=== PATIENT | female | born 1990 | race Hispanic/Latino ===

== ENCOUNTER 2017-07-11 08:53 | Emergency (ER) | payer OTHER ==
[2017-07-11] MEDS ORDERED: NA CHLORIDE 0.9% 1,000 ML ONE ×2 (10:08→12:31)
[2017-07-11] MEDS ORDERED: METOCLOPRAMIDE 10 MG/2mL INJ ONE (10:08)
[2017-07-11 10:48] LABS: Glucose Level 168 mg/dL (65-120)
[2017-07-11 10:49] LABS: BUN Blood Urea Nitrogen 12 mg/dL (6-20)
[2017-07-11 10:50] LABS: Bicarbonate 19 mEq/L (21-31); Sodium Level 136 mEq/L (135-145)
[2017-07-11 11:11] LABS: Absolute Lymphocytes (CBC) 0.8 K/uL (0.7-4.9); Absolute Monocytes 0.1 K/uL (0.1-1.3); Absolute Neutrophil 11.2 K/uL (1.8-8.0); Basophils % 0.2 % (0-1.3); Lymphocytes % 6.2 % (15.3-44.8); MCH 29.8 pg (27.0-35.0); MCV 88.9 fL (80-100); MPV 6.6 fL (7.6-11.3); Monocytes % 1.1 % (3.3-12.3); RBC Red Blood Cell Count 4.27 M/uL (3.86-4.86)
[2017-07-11] MEDS ORDERED: POTASSIUM CL SA 10 MEQ TAB PO ONE (11:33)
[2017-07-11 12:15] LABS: Blood Morphology Comment NOT SEEN (NOT SEEN); Platelet Estimate ADEQ; Urine White Blood Cell Casts OK
[2017-07-11 13:01] LABS: Urine Bacteria 20-50 /HPF (<20); Urine Culture Reflex Order NOT NEEDED; Urine Mucus 1+ /HPF (NONE SEEN)
--- NOTE | 2017-07-11 13:06 | ER ---
Nurse's Notes [facility] Name: Radha Beckman Age: 27 yrs Sex: Female : 1990 Arrival Date: 07/11/2017 Time: 08:54 Bed 5 Private MD: Diagnosis: Vomiting of , unspecified Presentation: 07/11 09:05 Presenting complaint: Patient states: has been vomiting all night and for past couple iw of weeks, body is tingling and having blurry vision, is currently , LMP is approx 3-1-18. Transition of care: patient was not received from another setting of care. Onset of symptoms was July 11, 2017. Initial Sepsis Screen: Does the patient meet any 2 criteria? No. Patient's initial sepsis screen is negative. Does the patient have a suspected source of infection? No. Patient's initial sepsis screen is negative. Care prior to arrival: Medication(s) given: diclegis and promethazine this morning. 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 - Social history:: Smoking status: Patient/guardian denies using tobacco. Screenin:45 Abuse screen: Denies threats or abuse. Denies injuries from another. Nutritional sg screening: No deficits noted. Tuberculosis screening: No symptoms or risk factors identified. Never had TB. Fall Risk None identified. Assessment: 09:45 General: Appears in no apparent distress. uncomfortable, ill, well groomed, well sg developed, well nourished, Behavior is calm, cooperative, appropriate for age. Pain: Denies pain. Neuro: No deficits noted. Reports headache tingling sensation to the face. Cardiovascular: Heart tones S1 S2 present Capillary refill is brisk in bilateral fingers Patient's skin is warm and dry. Chest pain is denied. Respiratory: Airway is patent Respiratory effort is even, unlabored, Respiratory pattern is regular, symmetrical. GI: Abdomen is flat, non-distended, Bowel sounds present X 4 quads. Reports cramping, nausea, vomiting. : No signs and/or symptoms were reported regarding the genitourinary system. EENT: No signs and/or symptoms were reported regarding the EENT system. Derm: Skin is intact, is healthy with good turgor, Skin is dry, Skin is normal, Skin temperature is warm. Musculoskeletal: No signs and/or symptoms reported regarding the musculoskeletal system. 10:37 Reassessment: pt dry heaving and moaning aloud at this time, requesting water. pt sg informed NPO until testing is complete and nausea vomiting has subsided, pt reports understanding, pt verbalized " Ill just drink from the faucet here in the room." will continue to monitor. 12:27 Reassessment: Patient appears in no apparent distress at this time. Patient and/or sg family updated on plan of care and expected duration. Pain level reassessed. Patient is alert, oriented x 3, equal unlabored respirations, skin warm/dry/pink. pt tolerating PO juice and water and ice chips at this time, pt encouraged not to take too much fluids in at once, pt stated understanding, will continue to monitor Patient states feeling better. Vital Signs: 09:07 BP 116 / 79; Pulse 82; Resp 22 S; Temp 98.8; Pulse Ox 100% on R/A; Weight 51.26 kg; iw Height 5 ft. 1 in. (154.94 cm); Pain 8/10; 09:45 BP 116 / 79 Supine; Pulse 75; sg 10:00 BP 115 / 84 Sitting; Pulse 80 MON; sg 10:04 BP 131 / 92 Standing; Pulse 95; sg 09:07 Body Mass Index 21.35 (51.26 kg, 154.94 cm) iw ED Course: 08:54 Patient arrived in ED. as 09:06 Triage completed. iw 09:07 Arm band placed on. iw 09:40 Initial lab(s) drawn, by ED staff, sent to lab. Inserted saline lock: 20 gauge in right sg antecubital area, using aseptic technique. Blood collected. IV inserted by [employer]. 10:00 Salome Moser FNP-C is PHCP. kb 10:00 Dylan Moran MD is Attending Physician. kb 10:04 Li, Travon, RN is Primary Nurse. sg Administered Medications: 10:26 Drug: NS 0.9% 1000 ml Route: IV; Rate: 1000 ml; Site: right antecubital; sv 10:26 Drug: Reglan 10 mg Route: IVP; Infused Over: 5 mins; Site: right antecubital; sv 11:30 Follow up: Response: No adverse reaction sg 12:25 Drug: Potassium Chloride 40 mEq Route: PO; sg 13:10 Follow up: Response: No adverse reaction sg 12:35 Drug: NS 0.9% 1000 ml Route: IV; Rate: 1000 ml; Site: right antecubital; sg Outcome: 13:05 Discharge ordered by MD. kb 13:22 Patient left the ED. sg Signatures: Salome Moser, DESTIN CHAIDEZ-Lakshmi Rodriguez RN DALIA Travon Li, RN RN sg Kami Juarez Irene RN RN iw Corrections: (The following items were deleted from the chart) 09:08 09:05 Presenting complaint: Patient states: has been vomiting all night, body is iw tingling and having blurry vision, is currently , LMP is approx 3-1-18 iw
--- NOTE | 2017-07-11 13:06 | EDPHYS ---
Physician Documentation [facility] Name: Radha Beckman Age: 27 yrs Sex: Female : 1990 Arrival Date: 07/11/2017 Time: 08:54 Bed 5 Private MD: ED Physician Dylan Moran HPI: 07/11 10:06 This 27 yrs old Female presents to ER via Ambulatory with complaints of kb Vomiting - Preg Unk Weeks. 10:06 The patient presents to the emergency department with nausea and vomiting, that started kb 19 day(s) ago. course: care: at a clinic, Leakage of Fluid: none appreciated, Ultrasound: the patient has not had an ultrasound, Risk/complications: no obvious risks or complications are appreciated. Previous pregnancies: in previous pregnancies patient has had. Associated signs and symptoms: Pertinent positives: nausea, vomiting, Pertinent negatives: abdominal pain, chest pain, diarrhea, dysuria, fever, frequency, ruptured membranes, seizure, shortness of breath, vaginal bleeding, vaginal discharge. The patient has not experienced similar symptoms in the past. The patient has not recently seen a physician. 10:08 Pt states she has been vomiting since 06/22/17. Had a positive test last week kb at [facility] clinic. States she was seen 2 days ago and given a prescription for phenergan, but it hasn't been working. 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 - Social history:: Smoking status: Patient/guardian denies using tobacco. ROS: 10:06 Constitutional: Negative for fever, chills, and weight loss, Cardiovascular: Negative kb for chest pain, palpitations, and edema, Respiratory: Negative for shortness of breath, cough, wheezing, and pleuritic chest pain, Back: Negative for injury and pain, : Negative for injury, bleeding, discharge, and swelling, MS/Extremity: Negative for injury and deformity, Skin: Negative for injury, rash, and discoloration, Neuro: Negative for headache, weakness, numbness, tingling, and seizure. 10:06 Abdomen/GI: Positive for nausea and vomiting, Negative for abdominal pain, diarrhea, constipation, abdominal cramps, abdominal distension, anorexia. Exam: 10:06 Constitutional: This is a well developed, well nourished patient who is awake, alert, kb and in no acute distress. Head/Face: Normocephalic, atraumatic. ENT: Nares patent. No nasal discharge, no septal abnormalities noted. Tympanic membranes are normal and external auditory canals are clear. Oropharynx with no redness, swelling, or masses, exudates, or evidence of obstruction, uvula midline. Mucous membranes moist. Neck: Trachea midline, no thyromegaly or masses palpated, and no cervical lymphadenopathy. Supple, full range of motion without nuchal rigidity, or vertebral point tenderness. No Meningismus. Chest/axilla: Normal chest wall appearance and motion. Nontender with no deformity. No lesions are appreciated. Cardiovascular: Regular rate and rhythm with a normal S1 and S2. No gallops, murmurs, or rubs. Normal PMI, no JVD. No pulse deficits. Respiratory: Lungs have equal breath sounds bilaterally, clear to auscultation and percussion. No rales, rhonchi or wheezes noted. No increased work of breathing, no retractions or nasal flaring. Abdomen/GI: Soft, non-tender, with normal bowel sounds. No distension or tympany. No guarding or rebound. No evidence of tenderness throughout. Skin: Warm, dry with normal turgor. Normal color with no rashes, no lesions, and no evidence of cellulitis. MS/ Extremity: Pulses equal, no cyanosis. Neurovascular intact. Full, normal range of motion. Neuro: Awake and alert, GCS 15, oriented to person, place, time, and situation. Cranial nerves II-XII grossly intact. Motor strength 5/5 in all extremities. Sensory grossly intact. Cerebellar exam normal. Normal gait. Vital Signs: 09:07 BP 116 / 79; Pulse 82; Resp 22 S; Temp 98.8; Pulse Ox 100% on R/A; Weight 51.26 kg; iw Height 5 ft. 1 in. (154.94 cm); Pain 8/10; 09:45 BP 116 / 79 Supine; Pulse 75; sg 10:00 BP 115 / 84 Sitting; Pulse 80 MON; sg 10:04 BP 131 / 92 Standing; Pulse 95; sg 09:07 Body Mass Index 21.35 (51.26 kg, 154.94 cm) iw MDM: 10:00 Patient medically screened. kb 10:06 Data reviewed: vital signs, nurses notes. Data interpreted: Pulse oximetry: on room air kb is 100 %. Interpretation: normal. 11:16 ED course: Pt reports she is doing better. Resting on stretcher. Awaiting lab results. kb 12:40 Counseling: I had a detailed discussion with the patient and/or guardian regarding: the kb historical points, exam findings, and any diagnostic results supporting the discharge/admit diagnosis, lab results, the need for outpatient follow up, an OB/Gyne specialist, to return to the emergency department if symptoms worsen or persist or if there are any questions or concerns that arise at home. 12:43 ED course: Pt denies abd pain and vaginal bleeding. Pt is tolerating PO intake at this kb time. Educated to follow up with OB. Verbal understanding received. . 07/11 10:06 Order name: Quantitative Hcg; Complete Time: 11:31 kb 07/11 10:06 Order name: Abo/rh Typing; Complete Time: 11:11 kb 07/11 10:06 Order name: Basic Metabolic Panel; Complete Time: 11:31 kb 07/11 10:06 Order name: CBC with Diff; Complete Time: 12:17 kb 07/11 11:13 Order name: CBC Smear Scan; Complete Time: 12:17 EDMS 07/11 12:26 Order name: Urine Microscopic Only; Complete Time: 13:02 kb 07/11 10:02 Order name: Orthostatics; Complete Time: 10:07 kb 07/11 12:26 Order name: Urine Culture kb 07/11 12:32 Order name: Urine Dipstick--Ancillary (enter results) ag 07/11 12:32 Order name: Urine --Ancillary (enter results) ag 07/11 10:06 Order name: Urine Test (obtain specimen); Complete Time: 12:26 kb 07/11 10:06 Order name: IV Saline Lock; Complete Time: 10:19 kb 07/11 10:06 Order name: Labs collected and sent; Complete Time: 10:19 kb 07/11 10:06 Order name: NPO; Complete Time: 10:07 kb 07/11 10:06 Order name: Urine Dipstick-Ancillary (obtain specimen); Complete Time: 12:26 kb 07/11 12:12 Order name: PO challenge; Complete Time: 12:26 kb Administered Medications: 10:26 Drug: NS 0.9% 1000 ml Route: IV; Rate: 1000 ml; Site: right antecubital; sv 10:26 Drug: Reglan 10 mg Route: IVP; Infused Over: 5 mins; Site: right antecubital; sv 11:30 Follow up: Response: No adverse reaction sg 12:25 Drug: Potassium Chloride 40 mEq Route: PO; sg 13:10 Follow up: Response: No adverse reaction sg 12:35 Drug: NS 0.9% 1000 ml Route: IV; Rate: 1000 ml; Site: right antecubital; sg Disposition: 07/11/17 13:05 Discharged to Home. Impression: Vomiting of , unspecified. - Condition is Stable. - Discharge Instructions: Morning Sickness, [id number]. - Prescriptions for Phenergan 25 mg Rectal Suppository - insert 1 suppository by RECTAL route every 6 hours As needed; 12 suppository. - Medication Reconciliation Form, Thank You Letter, Antibiotic Education, Prescription Opioid Use, Work release form, Family Work Release form. - Follow up: Emergency Department; When: As needed; Reason: Worsening of condition. Follow up: Private Physician; When: 2 - 3 days; Reason: Recheck today's complaints, Continuance of care, Re-evaluation by your physician. - Notes: Continue phenergan and diclegis as directed by OB Addendum: 07/13/2017 10:42 Co-signature as Attending Physician, Dylan Moran MD I agree with the assessment and w a plan of care. Signatures: Dispatcher [employer] EDSalome Talley, DESTIN HANDLEYP-Lakshmi Rodriguez RN RN sv Gay, Steven, RN RN sg Williams, Irene, RN RN iw Appiah, William, MD MD wa Corrections: (The following items were deleted from the chart) 07/11 13:22 13:05 07/11/2017 13:05 Discharged to Home. Impression: Vomiting of , sg unspecified. Condition is Stable. Forms are Medication Reconciliation Form, Thank You Letter, Antibiotic Education, Prescription Opioid Use. Follow up: Emergency Department; When: As needed; Reason: Worsening of condition. Follow up: Private Physician; When: 2 - 3 days; Reason: Recheck today's complaints, Continuance of care, Re-evaluation by your physician. kb
[2017-07-11 13:25] VITALS: TEMP 98.8; O2SAT 100
[2017-07-11 13:28] VITALS: BP 131/92
[2017-07-11 13:56] LABS: Urine Blood TRACE (NEG); Urine Glucose TRACE (NEG); Urine Protein 2+ (NEG); Urine Specific Gravity 1.025 (1.005-1.030); Urine pH 6.5 (5.0-7.0)
== END 2017-07-11 13:22 | disposition home or self-care (01) ==
LOC: ER 08:53
DX: O26.891 Other specified pregnancy related conditions, first trimester (principal); R11.11 Vomiting without nausea; Z3A.00 Weeks of gestation of pregnancy not specified
CPT/HCPCS: 36415; 80048; 81003; 81015; 81025; 84702; 85025; 86900; 86901; 87086; 87088; 96374; 99283; J2765; J7030

== ENCOUNTER 2017-07-14 14:14 | Observation (INO) | payer OTHER ==
[2017-07-14] MEDS ORDERED: NA CHLORIDE 0.9% 1,000 ML ONE (15:20)
[2017-07-14] MEDS ORDERED: PROMETHAZINE 25 MG/ML VIAL ONE (15:20)
[2017-07-14 15:44] LABS: Absolute Lymphocytes (CBC) 2.1 K/uL (0.7-4.9); Absolute Monocytes 0.7 K/uL (0.1-1.3); Absolute Neutrophil 11.4 K/uL (1.8-8.0); Basophils % 0.2 % (0-1.3); Eosinophils % 0.2 % (0-4.4); Hematocrit 42.9 % (36.0-45.0); Lymphocytes % 14.6 % (15.3-44.8); MCH 30.3 pg (27.0-35.0); MCV 88.4 fL (80-100); MPV 6.3 fL (7.6-11.3); RBC Red Blood Cell Count 4.86 M/uL (3.86-4.86)
[2017-07-14 15:52] LABS: Glucose Level 109 mg/dL (65-120); Lipase 21 U/L (22-51)
[2017-07-14 15:56] LABS: Bicarbonate 27 mEq/L (21-31); Sodium Level 133 mEq/L (135-145)
[2017-07-14 15:58] LABS: ALT/SGPT 60 IU/L (10-60); AST/SGOT 43 IU/L (10-42); Albumin 5.1 g/dL (3.2-5.5); Alkaline Phosphatase 41 IU/L (42-121); BUN Blood Urea Nitrogen 12 mg/dL (6-20); Bilirubin Direct 0.2 mg/dL (0-0.2); Potassium 2.3 mEq/L (3.6-5.0); Protein, Total 8.9 g/dL (6.0-8.3)
[2017-07-14] MEDS ORDERED: NS KCL 20MEQ 1,000 ML IV ONE (16:09)
[2017-07-14] MEDS ORDERED: POTASSIUM CL SA 10 MEQ TAB PO ONE (16:09)
[2017-07-14] MEDS ORDERED: ACETAMINOPHEN 500 MG TAB ONE (16:18)
--- NOTE | 2017-07-14 18:03 | EDPHYS ---
Physician Documentation [facility] Name: Radha Beckman Age: 27 yrs Sex: Female : 1990 Arrival Date: 07/14/2017 Time: 14:24 Bed 20 Private MD: ED Physician Vitor Crespo HPI: 07/14 15:43 This 27 yrs old Female presents to ER via Ambulatory with complaints of jr8 Nausea/Vomiting. 15:43 The patient presents to the emergency department with nausea, vomiting. Onset: The jr8 symptoms/episode began/occurred gradually, 1 month(s) ago. Possible causes: . The symptoms are aggravated by food , The symptoms are alleviated by prescription meds. Associated signs and symptoms: Pertinent positives: weakness and fatigue. Severity of symptoms: At their worst the symptoms were moderate in the emergency department the symptoms are unchanged. The patient has experienced similar episodes in the past, a few times. The patient has not recently seen a physician. Patient stated that she is and has had continuous n/v for approximately one month. Has had this three other times with her other children. History of hyperemesis gravidarum. 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 - Social history:: Smoking status: Patient/guardian denies using tobacco. ROS: 15:43 Eyes: Negative for injury, pain, redness, and discharge, ENT: Negative for injury, jr8 pain, and discharge, Neck: Negative for injury, pain, and swelling, Cardiovascular: Negative for chest pain, palpitations, and edema, Respiratory: Negative for shortness of breath, cough, wheezing, and pleuritic chest pain, Back: Negative for injury and pain, MS/Extremity: Negative for injury and deformity, Skin: Negative for injury, rash, and discoloration, Neuro: Negative for headache, weakness, numbness, tingling, and seizure. 15:43 Abdomen/GI: Positive for nausea and vomiting, Negative for abdominal pain, abdominal distension, anorexia, dysphagia, hematemesis, black/tarry stool, rectal pain, rectal bleeding, bowel incontinence, flatulence. Exam: 15:43 Eyes: Pupils equal round and reactive to light, extra-ocular motions intact. Lids and jr8 lashes normal. Conjunctiva and sclera are non-icteric and not injected. Cornea within normal limits. Periorbital areas with no swelling, redness, or edema. ENT: Nares patent. No nasal discharge, no septal abnormalities noted. Tympanic membranes are normal and external auditory canals are clear. Oropharynx with no redness, swelling, or masses, exudates, or evidence of obstruction, uvula midline. Mucous membranes moist. Neck: Trachea midline, no thyromegaly or masses palpated, and no cervical lymphadenopathy. Supple, full range of motion without nuchal rigidity, or vertebral point tenderness. No Meningismus. Cardiovascular: Regular rate and rhythm with a normal S1 and S2. No gallops, murmurs, or rubs. Normal PMI, no JVD. No pulse deficits. Respiratory: Lungs have equal breath sounds bilaterally, clear to auscultation and percussion. No rales, rhonchi or wheezes noted. No increased work of breathing, no retractions or nasal flaring. Abdomen/GI: Soft, non-tender, with normal bowel sounds. No distension or tympany. No guarding or rebound. No evidence of tenderness throughout. Back: No spinal tenderness. No costovertebral tenderness. Full range of motion. Skin: Warm, dry with normal turgor. Normal color with no rashes, no lesions, and no evidence of cellulitis. MS/ Extremity: Pulses equal, no cyanosis. Neurovascular intact. Full, normal range of motion. Neuro: Awake and alert, GCS 15, oriented to person, place, time, and situation. Cranial nerves II-XII grossly intact. Motor strength 5/5 in all extremities. Sensory grossly intact. Cerebellar exam normal. Normal gait. Vital Signs: 14:27 BP 124 / 78; Pulse 90; Resp 18; Temp 98.5(TE); Pulse Ox 100% on R/A; Weight 51.26 kg; hj Height 5 ft. 0 in. (152.40 cm); Pain 7/10; 16:19 BP 117 / 85; Pulse 87; Resp 19; Pulse Ox 100% on R/A; la1 17:24 BP 114 / 74; Pulse 81; Resp 16; Pulse Ox 100% on R/A; la1 18:25 BP 110 / 71; Pulse 86; Resp 16; Pulse Ox 100% on R/A; ae1 19:16 BP 125 / 78; Pulse 84; Resp 16; Temp 98.5(O); Pulse Ox 98% on R/A; lp1 14:27 Body Mass Index 22.07 (51.26 kg, 152.40 cm) hj MDM: 15:05 Patient medically screened. jr8 17:07 ED course: Message left for Dr. Monge at 17:00. Left message to call back about patient jr8 . 18:01 Data reviewed: vital signs, nurses notes, lab test result(s), and as a result, I will jr8 admit patient. Data interpreted: Pulse oximetry: on room air is 100 %. Interpretation: normal. Counseling: I had a detailed discussion with the patient and/or guardian regarding: the historical points, exam findings, and any diagnostic results supporting the discharge/admit diagnosis, lab results, the need for further work-up and treatment in the hospital. ED course: Dr. Monge was reached. Ok to admit for obs for hypokalemia and dehydration . 07/14 15:14 Order name: Basic Metabolic Panel; Complete Time: 16:00 8 07/14 15:14 Order name: CBC with Diff; Complete Time: 15:49 07/14 15:14 Order name: Hepatic Function; Complete Time: 16:00 8 07/14 15:14 Order name: Lipase; Complete Time: 16:00 8 07/14 18:12 Order name: Urine Dipstick--Ancillary (enter results); Complete Time: 19:29 bd 07/14 18:12 Order name: Urine --Ancillary (enter results); Complete Time: 19:29 bd 07/14 15:14 Order name: Urine Test (obtain specimen); Complete Time: 18:09 8 07/14 15:14 Order name: IV Saline Lock; Complete Time: 15:18 8 07/14 15:14 Order name: Labs collected and sent; Complete Time: 15:18 8 07/14 15:14 Order name: Urine Dipstick-Ancillary (obtain specimen); Complete Time: 18:09 jr8 Administered Medications: 15:26 Drug: NS 0.9% (20 ml/kg) 20 ml/kg Route: IV; Rate: 1 bolus; Site: right antecubital; la1 15:26 Drug: Phenergan 12.5 mg Route: IVP; Site: right antecubital; la1 17:49 Follow up: Response: No adverse reaction la1 16:19 Drug: NS 0.9% with KCl 20 mEq/L 1000 ml Route: IV; Rate: calculated rate; Site: right la1 antecubital; 19:18 Follow up: IV Status: Completed infusion lp1 16:19 Drug: Potassium Chloride 40 mEq Route: PO; la1 17:49 Follow up: Response: No adverse reaction la1 16:19 Drug: Tylenol 1000 mg Route: PO; la1 17:49 Follow up: Response: No adverse reaction la1 18:43 Drug: Pepcid 20 mg Route: IVP; Site: right antecubital; ae1 19:19 Follow up: Response: No adverse reaction lp1 Disposition: 07/15 19:50 Co-signature as Attending Physician, Vitor Crespo MD. Disposition: 07/14/17 18:03 Hospitalization ordered by Lanre Monge for Observation. Preliminary diagnosis are Hypokalemia, Dehydration, Vomiting of , unspecified. - [facility]. - Status is Observation. fc - Condition is Stable. - Problem is new. - Symptoms have improved. UTI on Admission? No Signatures: Dispatcher [employer] EDMS Sowmya Palmer Felicia, RN RN Choco Cannon, SANGITA PA jr8 Александр Han RN RN la1 Diego Diaz RN RN Melvin Colby RN RN ae1 Vitor Crespo MD MD Franny Stewart RN lp1 Corrections: (The following items were deleted from the chart) 07/14 18:31 18:03 Hospitalization Ordered by Lanre Monge MD for Observation. Preliminary bd diagnosis is Hypokalemia; Dehydration; Vomiting of , unspecified. Bed requested for [facility]. Status is Observation. Condition is Stable. Problem is new. Symptoms have improved. UTI on Admission? No. jr8 20:02 18:31 07/14/2017 18:03 Hospitalization Ordered by Lanre Monge MD for Observation. fc Preliminary diagnosis is Hypokalemia; Dehydration; Vomiting of , unspecified. Bed requested for [facility]. Status is Observation. Condition is Stable. Problem is new. Symptoms have improved. UTI on Admission? No. bd
--- NOTE | 2017-07-14 18:03 | ER ---
Nurse's Notes [facility] Name: Radha Beckman Age: 27 yrs Sex: Female : 1990 Arrival Date: 07/14/2017 Time: 14:24 Bed 20 Private MD: Diagnosis: Hypokalemia;Dehydration;Vomiting of , unspecified Presentation: 07/14 14:25 Presenting complaint: Patient states: LMP- 05/17/17; magdalena been vomiting since June; hj couldn't keep anything down and now i feel so weak; reports fever and chills;. Transition of care: patient was not received from another setting of care. Onset of symptoms was July 14, 2017. Initial Sepsis Screen: Does the patient meet any 2 criteria? No. Patient's initial sepsis screen is negative. Does the patient have a suspected source of infection? No. Patient's initial sepsis screen is negative. Care prior to arrival: None. 14:25 Method Of Arrival: Ambulatory 14:25 Acuity: SHARIF 3 hj Triage Assessment: 14:27 General: Appears in no apparent distress. uncomfortable, Behavior is calm, cooperative, hj appropriate for age. Pain: Denies pain. Complains of pain in abdomen. GI: Reports nausea, vomiting. 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 - Social history:: Smoking status: Patient/guardian denies using tobacco. Screenin:11 Abuse screen: Denies threats or abuse. Nutritional screening: No deficits noted. la1 Tuberculosis screening: No symptoms or risk factors identified. Fall Risk None identified. Assessment: 14:27 GI: Abdomen is Pt is actively vomiting. hj 15:10 General: Appears uncomfortable, Behavior is calm, cooperative. Pain: Denies pain. la1 Neuro: Level of Consciousness is awake, alert, obeys commands, Oriented to person, place, time, situation. Cardiovascular: Capillary refill < 3 seconds Patient's skin is warm and dry. Respiratory: Airway is patent Respiratory effort is even, unlabored. GI: Pt is actively vomiting. : No signs and/or symptoms were reported regarding the genitourinary system. 16:20 Reassessment: Patient appears in no apparent distress at this time. No changes from la1 previously documented assessment. 17:23 Reassessment: Patient appears in no apparent distress at this time. No changes from la1 previously documented assessment. Patient is alert, oriented x 3, equal unlabored respirations, skin warm/dry/pink. 18:26 Reassessment: Patient appears in no apparent distress at this time. No changes from ae1 previously documented assessment. Patient is alert, oriented x 3, equal unlabored respirations, skin warm/dry/pink. 18:43 Reassessment: patient is c/o of feeling "gassy" patient is observed belching ae1 repeatedly, and is asking for medication to help. Provider notified, new orders received. 19:17 Reassessment: Patient is alert, oriented x 3, equal unlabored respirations, skin lp1 warm/dry/pink. Patient states "I feel like the nausea is coming back". Vital Signs: 14:27 BP 124 / 78; Pulse 90; Resp 18; Temp 98.5(TE); Pulse Ox 100% on R/A; Weight 51.26 kg; hj Height 5 ft. 0 in. (152.40 cm); Pain 7/10; 16:19 BP 117 / 85; Pulse 87; Resp 19; Pulse Ox 100% on R/A; la1 17:24 BP 114 / 74; Pulse 81; Resp 16; Pulse Ox 100% on R/A; la1 18:25 BP 110 / 71; Pulse 86; Resp 16; Pulse Ox 100% on R/A; ae1 19:16 BP 125 / 78; Pulse 84; Resp 16; Temp 98.5(O); Pulse Ox 98% on R/A; lp1 14:27 Body Mass Index 22.07 (51.26 kg, 152.40 cm) ED Course: 14:24 Patient arrived in ED. 14:26 Triage completed. 14:27 Arm band placed on left wrist. 15:05 [facility] Cannon [facility] 15:05 Vitor Crespo MD is Attending Physician. jr8 15:10 Attema, Александр, RN is Primary Nurse. la1 15:11 Call light in reach. la1 15:18 Inserted saline lock: 22 gauge in right antecubital area, using aseptic technique. la1 Blood collected. 18:02 Lanre Monge MD is Hospitalizing Provider. jr8 19:17 No provider procedures requiring assistance completed. Patient admitted, IV remains in lp1 place. Administered Medications: 15:26 Drug: NS 0.9% (20 ml/kg) 20 ml/kg Route: IV; Rate: 1 bolus; Site: right antecubital; la1 15:26 Drug: Phenergan 12.5 mg Route: IVP; Site: right antecubital; la1 17:49 Follow up: Response: No adverse reaction la1 16:19 Drug: NS 0.9% with KCl 20 mEq/L 1000 ml Route: IV; Rate: calculated rate; Site: right la1 antecubital; 19:18 Follow up: IV Status: Completed infusion lp1 16:19 Drug: Potassium Chloride 40 mEq Route: PO; la1 17:49 Follow up: Response: No adverse reaction la1 16:19 Drug: Tylenol 1000 mg Route: PO; la1 17:49 Follow up: Response: No adverse reaction la1 18:43 Drug: Pepcid 20 mg Route: IVP; Site: right antecubital; ae1 19:19 Follow up: Response: No adverse reaction lp1 Outcome: 18:03 Decision to Hospitalize by Provider. jr8 19:17 Condition: stable lp1 19:17 Instructed on the need for admit. 19:57 Admitted to L \\T\\ D, accompanied by nurse, via wheelchair, room 277, with chart, Report lp1 called to DALIA Price 20:02 Patient left the ED. fc Signatures: Kanwal Anaya RN DALIA Franny Stewart RN RN lp1 Choco Cannon PA PA jr8 Александр Han RN RN la1 Diego Diaz RN RN Melvin Colby RN RN ae1 Corrections: (The following items were deleted from the chart) 14:29 14:27 Pulse 90bpm; Resp 18bpm; Pulse Ox 100% RA; Temp 98.5F Temporal; 51.26 kg; Height hj 5 ft. 0 in.; BMI: 22.0; Pain 7/10; hj
[2017-07-14] MEDS ORDERED: FAMOTIDINE 20 MG/2 ML VIAL IV ONE (18:42)
[2017-07-14 18:45] LABS: Urine Blood TRACE (NEG); Urine Glucose NEGATIVE (NEG); Urine Protein 1+ (NEG); Urine Specific Gravity 1.015 (1.005-1.030); Urine pH 8.5 (5.0-7.0)
[2017-07-14] MEDS ORDERED: Ringers Lactate 1,000 ML IV SCH (20:23)
[2017-07-14] MEDS ORDERED: KCL 20 MEQ/100 mL IVPB 20 MEQ/100 ML BAG IV SCH (20:23)
[2017-07-14] MEDS ORDERED: ONDANSETRON 4 MG/2 ML VIAL IV PRN (20:23)
[2017-07-14] MEDS ORDERED: D5.45NS W/KCL 20MEQ 1,000 ML IV SCH (20:23)
[2017-07-14 20:43] VITALS: O2SAT 98
[2017-07-14] MEDS: PROMETHAZINE 25 MG/ML VIAL IV PRN (20:54)
[2017-07-14] MEDS ORDERED: KCL 20 MEQ/100 mL IVPB 20 MEQ/100 ML BAG IV ONE (21:22)
[2017-07-14] MEDS ORDERED: ZOLPIDEM TARTRATE 5 MG TABLET PO PRN (21:23)
[2017-07-14] MEDS ORDERED: D5.45NS W/KCL 20MEQ 1,000 ML IV ONE (21:26)
[2017-07-14] MEDS: ACETAMINOPHEN 500 MG TAB PO PRN (21:41)
[2017-07-14 22:14] VITALS: BMI 21.9
[2017-07-15 04:41] LABS: Absolute Lymphocytes (CBC) 2.5 K/uL (0.7-4.9); Absolute Monocytes 0.6 K/uL (0.1-1.3); Absolute Neutrophil 5.1 K/uL (1.8-8.0); Basophils % 0.3 % (0-1.3); Eosinophils % 0.8 % (0-4.4); Hematocrit 32.8 % (36.0-45.0); MCH 30.4 pg (27.0-35.0); MCV 89.7 fL (80-100); Monocytes % 7.6 % (3.3-12.3); RBC Red Blood Cell Count 3.65 M/uL (3.86-4.86)
[2017-07-15 04:57] LABS: BUN Blood Urea Nitrogen 6 mg/dL (6-20); Bicarbonate 23 mEq/L (21-31); Glucose Level 93 mg/dL (65-120); Potassium 3.5 mEq/L (3.6-5.0); Sodium Level 135 mEq/L (135-145)
[2017-07-15 07:40] VITALS: BP 98/57; TEMP 98.9
[2017-07-15] MEDS: PROMETHAZINE 25 MG/ML VIAL IV PRN (09:05)
[2017-07-15] MEDS: ACETAMINOPHEN 500 MG TAB PO PRN (09:35)
--- NOTE | 2017-07-15 12:00 | PREOPHP ---
Date of Admission: 07/14/2017 History Of Present Illness: This is a 4, para 3, who is at 8 weeks and 5 days' gestation wit h hyperemesis gravidarum. Seen in the emergency room. Noted to have hypokalemia, level of 2.3, was given oral and IV potassium, hydrated. It was thought best to keep her for overnight observation. D uring the night, she has only had antinausea medicine one time 12.5 mg, which was given IV according to ER orders. She has been sleeping soundly. Her on potassium level this morning is 3.5. She seems to be improving significantly. Family History: Noncontributory. Allergies: SHE HAS NO ALLERGIES. Physical Examination: Basically normal and there are no significant problems this morning, so we will allow her to eat a li ght breakfast. Continue the IVs until we know she is stable and then probably send her home later th is morning. Diagnosis: Hyperemesis gravidarum, first trimester, now improving. CORBY/GRISELDA Voice ID: [id number]
== END 2017-07-15 10:25 | disposition home or self-care (01) ==
LOC: ER 14:14 → ERHOLD 18:04 → 2ND-WC 19:36
PROVIDERS: ADMIT Specialist; ATTEND Specialist
DX: O21.1 Hyperemesis gravidarum with metabolic disturbance (principal); Z3A.08 8 weeks gestation of pregnancy
CPT/HCPCS: 36415; 80048; 80076; 81003; 81025; 83690; 85025; 96361; 96374; 96375; 99285; G0378; J2550; J7030

== ENCOUNTER 2018-02-04 04:13 | Inpatient (IN) | payer OTHER ==
[2018-02-04] MEDS ORDERED: MEPERIDINE HCL 25 MG/0.5 ML IV PRN (04:22)
[2018-02-04] MEDS ORDERED: CARBOPROST TROME 250 MCG/ML IM PRN (04:22)
[2018-02-04] MEDS ORDERED: Ringers Lactate 1,000 ML IV PRN (04:22)
[2018-02-04] MEDS ORDERED: MIDAZOLAM HCL 2 MG/2 ML INJ IV PRN (04:22)
[2018-02-04] MEDS ORDERED: PROMETHAZINE 25 MG/ML VIAL IM PRN (04:22)
[2018-02-04] MEDS ORDERED: METHYLERGONOVINE 0.2MG/ML AMP IM PRN (04:22)
[2018-02-04] MEDS ORDERED: Ringers Lactate 1,000 ML IV SCH (05:00)
[2018-02-04] MEDS ORDERED: OXYTOCIN/LR 20 UNIT/1,000 ML BAG IV SCH ×2 (05:00→13:00)
[2018-02-04 05:28] LABS: RPR Titer ND
[2018-02-04 05:30] LABS: Urine Appearance CLOUDY; Urine Bilirubin NEGATIVE (NEG); Urine Blood TRACE (NEG); Urine Color YELLOW; Urine Glucose NEGATIVE (NEG); Urine Protein NEGATIVE (NEG); Urine Specific Gravity 1.015 (1.005-1.030); Urine Urobilinogen 0.2 mg/dL (0.2-1.0); Urine pH 6.5 (5.0-7.0)
[2018-02-04 05:40] LABS: Urine Bacteria >50 /HPF (<20); Urine RBC <5 /HPF (NONE SEEN)
[2018-02-04 05:41] LABS: Urine Culture Reflex Order REFLEXED; Urine Trichomonas PRESENT (NONE SEEN)
[2018-02-04 05:49] LABS: Absolute Lymphocytes (CBC) 1.6 K/uL (0.7-4.9); Absolute Monocytes 0.4 K/uL (0.1-1.3); Absolute Neutrophil 6.9 K/uL (1.8-8.0); Basophils % 0.1 % (0-1.3); Eosinophils % 1.8 % (0-4.4); Hematocrit 30.5 % (36.0-45.0); Lymphocytes % 17.2 % (15.3-44.8); MCH 31.2 pg (27.0-35.0); MCV 90.5 fL (80-100); Monocytes % 4.2 % (3.3-12.3); RBC Red Blood Cell Count 3.37 M/uL (3.86-4.86)
[2018-02-04 05:55] VITALS: BMI 28.3
[2018-02-04] MEDS ORDERED: BUTORPHANOL 1 MG/ML INJ IV PRN (08:27)
[2018-02-04] MEDS ORDERED: ROPIVACAINE HCL 100 ML IV PRN (10:07)
[2018-02-04] MEDS ORDERED: FENTANYL CITR 100 MCG/2 ML IV ONE (10:07)
[2018-02-04] MEDS ORDERED: DOCUSATE NA/SENNA CONC 1 TAB PO PRN (12:08)
[2018-02-04] MEDS ORDERED: BISACODYL 10 MG RECTAL SUPP RECT PRN (12:08)
[2018-02-04] MEDS ORDERED: DIPHENHYDRAMINE 25 MG TAB/CAP PO PRN (12:08)
[2018-02-04] MEDS ORDERED: ACETAMINOPHEN 500 MG TAB PO PRN (12:08)
[2018-02-04] MEDS ORDERED: IBUPROFEN 200 MG TAB PO PRN (12:08)
[2018-02-04] MEDS ORDERED: Oxycodone HCl/Acetaminophen 1 TAB TAB PO PRN (12:08)
--- NOTE | 2018-02-04 12:35 | OP ---
Surgeon: Lanre Monge MD A 27-year-old 4, para 3, 39 weeks for induction. Two to 2.5 cm on admission. Rupture of mem branes, clear fluid. The patient received epidural anesthesia at 4 to 4-1/2 cm, went rapidly to comp lete. Second stage of 15 to 20 minutes. Spontaneous vaginal delivery of an estimated 7-pound plus o r minus female. Nuchal cord loosely 1 time. Apgars 8 and 9. No episiotomy. No lacerations worthy of suturing. Schultze delivery of the placenta, which was inspected and noted to be intact and jon l. Less than 300 cc blood loss. Rh positive, immune to Rubella. Negative beta strep screen. Nia ated all procedures well. Final Diagnoses: Intrauterine gestation, 39 weeks. Vaginal delivery. Epidural anesthesia. Nuchal cord x1. CORBY/GRISELDA Voice ID: [id number] Report ID: [id number]
--- NOTE | 2018-02-04 12:41 | PN ---
The patient has her epidural. She is very comfortable. In fact, so numb she cannot even push. She is now completely dilated. The baby is about +1 station. We will turn the epidural maintenance dose from 8 to 6 and progressively decrease it, which she agrees should be done because she cannot coordi hira to push right now. The baby looks good, so we will just wait until she gets more of an urge. CORBY/GRISELDA Voice ID: [id number] Report ID: [id number]
[2018-02-04 21:21] LABS: RPR (Rapid Plasma Reagin) NON-REACT (NON-REACT)
[2018-02-05] MEDS: Oxycodone HCl/Acetaminophen 1 TAB TAB PO PRN ×2 (02:10→11:55)
[2018-02-05 12:10] VITALS: BP 107/67; TEMP 98.6
--- NOTE | 2018-02-06 04:43 | DS ---
Date of Discharge: 02/05/2018 Hospital Course: A 27-year-old, 4, para 3, at 39 weeks gestation, elective induction, pros a nd cons, delivered easily of a 7 pound estimated female. Apgars 8 and 9. No episiotomy. No lacerat ions worthy of suturing. Epidural anesthesia gave good effect. Schultze delivery of the placenta, w hich was inspected and noted to be intact and normal. Less than 300 cc blood loss. Rh positive, imm une to Rubella. Negative beta strep screen. ; afebrile, ambulating, and voiding. Lochia is normal. No post epidural problems. The patient has declined Tdap and flu shots during the pregna ncy and again today. She was noted to have Trichomonas on admission. She will be dismissed with met ronidazole to be taken twice a day for 5 days. Full discussion. Final Diagnoses: 1.Intrauterine gestation, 39 weeks. 2.Vaginal delivery. 3.Epidural anesthesia. 4.Nuchal cord. 5.Trichomonas prior to admission, now under treatment. CORBY/GRISELDA Voice ID: [id number] Report ID: [id number]
[2018-02-06 21:07] LABS: HBsAG Nonreactive (Nonreactive)
--- NOTE | 2018-02-10 13:01 | PREOPHP ---
Date of Admission: 02/04/2018 The patient is 27-year-old 4, para 3, 39 weeks. History of anemia prior to admission and con tinuing on admission noted to have a hematocrit of 30.5. Also urinalysis on admission noted to have Trichomonas present. This was discussed with the patient. We will treat her sometime in the postpar diana period. She is Rh positive, immune to Rubella. Negative beta strep screen. Two to 2-1/2 cm, 50 % effaced, vertex, -1 station. Rupture of membranes, clear fluid. Trang regularly at this poi nt. Anticipate more rapid progress once she gets to 3-1/2 to 4 cm. The patient will be requesting e pidural, which she should be able to get fairly expeditiously once she gets to that point. Full labo r talk given. Anticipate delivery sometime later today. CORBY/GRISELDA Voice ID: [id number]
--- NOTE | 2018-02-11 12:03 | PREOPHP ---
Date of Admission: 02/04/2018 History Of Present Illness: A 27-year-old, 4, para 3, 39 weeks' gestation. Full preadmissio n counseling concerning induction pros and cons. Family History: Noncontributory. Allergies: NONE. Review of Systems: Noncontributory. Physical Examination: HEENT: Clear. Pupils equal, round, and reactive to light and accommodation. Conjunctivae well perf used. No oral, lingual, or buccal lesions. Chest and Lungs: Clear. Heart: Without murmurs, thrills, heaves, or rubs. Breasts: Without masses on previous exams. Abdomen: Term size. Extremities: Clear without edema, cyanosis, or clubbing. Pelvic: Baby is vertex. Thought to be 1.5 to 2 cm or more. Final Diagnosis: Term intrauterine , for induction. CORBY/GRISELDA Voice ID: [id number]
--- NOTE | 2018-02-13 16:22 | PN ---
The patient is esmer more regularly now, although she is still not really uncomfortable. There does seem to be leakage of fluid, although not a great deal of fluid and it is clear. Baby looks go od. We will continue to increase the Pitocin and if there is some doubt about membrane rupture, we w ill attempt again later. But right now, we were reasonably certain that the membranes have been rupt ured. CORBY/GRISELDA Voice ID: [id number] Report ID: [id number]
--- NOTE | 2018-02-16 09:17 | PREOPHP ---
Date of Admission: 02/04/2018 It says history and physical is lacking, it is not, it has been dictated. Please see what has been d ictated and correct that. CORBY/GRISELDA Voice ID: [id number]
== END 2018-02-05 14:35 | disposition home or self-care (01) | DRG 807 ==
LOC: 2ND-WC 04:13
PROVIDERS: ADMIT Specialist; ATTEND Specialist
PROC: 10E0XZZ Delivery of Products of Conception, External Approach (ICD-10-PCS; principal; 2018-02-04)
PROC: 3E033VJ Introduction of Other Hormone into Peripheral Vein, Percutaneous Approach (ICD-10-PCS; 2018-02-04)
DX: O98.82 Other maternal infectious and parasitic diseases complicating childbirth (principal); Z37.0 Single live birth; A59.00 Urogenital trichomoniasis, unspecified; O69.81X0 Labor and delivery complicated by cord around neck, without compression, not applicable or unspecified; Z3A.39 39 weeks gestation of pregnancy
CPT/HCPCS: 36415; 81001; 85025; 86592; 86901; 87086; 87088; 87340; J0595; J2210; J2590; J2795; J3010

== ENCOUNTER 2020-01-08 06:49 | Inpatient (IN) | payer OTHER ==
--- OUTSIDE RECORDS SUMMARY | 2020-01-08 06:52 | XMS REPORT | Continuity of Care Document ---
:1990 Author Organization [facility] t Address [address] [place] [address] Dr. El [address] [place] [id number] Care Team Providers Name Role Phone Gianni DOUGHERTY Attending Clinician Larry Sheets MD Attending Clinician 2, Lab Attending Clinician Unavailable Problems This patient has no known problems. Allergies, Adverse Reactions, Alerts This patient has no known allergies or adverse reactions. Medications This patient has no known medications. Procedures This patient has no known procedures. Encounters Start End Encounter Admission Attending Care Care Encounter Source Date/Time Date/Time Type Type Clinicians Facility Department ID 2019-09-24 2019-09-24 Telemedici Gianni DEALBA [id number] [id number] 16:10:20 16:25:20 ne Visit Devi Barton [id number] [place] [id number] Professio [phone] [address] 2019-09-24 2019-09-24 Telephone Katrina Sheets [facility] [id number] 00:00:00 00:00:00 Larry Barton [id number] [place] [id number] Professio [phone] [address] 2019-09-22 2019-09-22 Telephone Katrina Sheets [facility] [id number] 00:00:00 00:00:00 Larry Barton [id number] [place] [id number] Professio [phone] count includes the [facility] 2019-09-14 2019-09-14 Telemedici Katrina Sheets [facility] [id number] 12:58:44 15:18:12 ne Visit Cam Mick [id number] [place] [id number] Professio [phone] [address] 2019-08-24 2019-08-24 Tele[address] Katrina Sheets [facility] [id number] 00:00:00 00:00:00 Cam [place] [id number] [place] [id number] Professio [phone] [address] 2019-08-16 2019-08-16 Cooperative Manager 2, Adc Lab [facility] [id number] 11:46:17 12:01:17 Visit Mick [id number] [place] [id number] Professio [phone] [address] 2019-08-13 2019-08-[address] [facility] [id number] 13:39:37 15:12:57 Devi Barton [id number] Visit [place] [id number] Professio [phone] [address] Results This patient has no known results.
[2020-01-08] MEDS ORDERED: CARBOPROST TROME 250 MCG/ML IM PRN (07:39)
[2020-01-08] MEDS ORDERED: PROMETHAZINE INJ 25 MG/ML AMP IM PRN (07:39)
[2020-01-08] MEDS ORDERED: METHYLERGONOVINE 0.2MG/ML AMP IM PRN (07:39)
[2020-01-08] MEDS ORDERED: Ringers Lactate 1,000 ML IV PRN (07:39)
[2020-01-08] MEDS ORDERED: Ringers Lactate 1,000 ML IV SCH (08:00)
[2020-01-08] MEDS ORDERED: OXYTOCIN/LR 20 UNIT/1,000 ML BAG IV SCH ×2 (08:00→11:00)
[2020-01-08 08:05] LABS: Absolute Lymphocytes (CBC) 1.6 K/uL (0.7-4.9); Basophils % 0.2 % (0-1.3); Hematocrit 34.5 % (36.0-45.0); Lymphocytes % 16.8 % (15.3-44.8); MPV 6.2 fL (7.6-11.3); RBC Red Blood Cell Count 3.77 M/uL (3.86-4.86)
[2020-01-08] MEDS ORDERED: BUTORPHANOL 1 MG/ML INJ ONE (08:15)
[2020-01-08] MEDS ORDERED: FENTANYL CITR 100 MCG/2 ML IV ONE (08:27)
[2020-01-08] MEDS ORDERED: ROPIVACAINE HCL 0.2% 20ML AMP IV ONE (08:28)
[2020-01-08] MEDS ORDERED: 0.2% ROPIVACAINE (200 MG/100 ML) BAG EP ONE (08:28)
[2020-01-08] MEDS ORDERED: LIDOCAINE 1% MPF 30 ML VIAL ONE (08:44)
--- NOTE | 2020-01-08 09:07 | PREOPHP ---
Date of Admission: 01/08/2020 29-year-old, 5, para 4, followed antepartum, noted to be anemic throughout the entire pregnan cy. Thorough discussion about this on numerous occasions and iron supplements strongly suggested. T he patient declined all pelvic exams during last months of the , has also declined pelvic te sting on admission. She is Rh positive, immune to Rubella. Negative beta strep screen. The patient is now 40 weeks, came in active labor. She is esmer every 2-3 minutes. Baby looks good on e monitor. Initially, she said she did not want Stadol but has changed her mind and wants Stadol. T he lab has just been drawn and, once we get patient's platelet levels and hydrate her, we will probab ly begin epidural at that point, which she does want. Full labor talk given. The patient has also n ow agreed to Pitocin augmentation. Rupture of membranes performed, basically term looking fluid. No definite meconium. Anticipate delivery relatively soon. CORBY/GRISELDA Voice ID: [id number]
[2020-01-08 09:42] VITALS: BMI 28.9
[2020-01-08] MEDS ORDERED: BISACODYL 10 MG RECTAL SUPP PR PRN (10:04)
[2020-01-08] MEDS ORDERED: ACETAMINOPHEN 500 MG TAB PO PRN (10:04)
[2020-01-08] MEDS ORDERED: IBUPROFEN 600 MG TAB PO PRN (10:04)
[2020-01-08] MEDS ORDERED: DIPHENHYDRAMINE 25 MG TAB/CAP PO PRN (10:04)
[2020-01-08] MEDS ORDERED: DOCUSATE NA/SENNA CONC 1 TAB PO PRN (10:04)
--- NOTE | 2020-01-08 13:09 | PN ---
The patient had her epidural instituted about half an hour ago. She is unable to tell when she is contreras ving contractions. The patient is fully dilated now, baby is 0 to +1 station. We will turn the main tenance dose back a little bit so she can at least feel pressure and then I think she can coordinate to push. Full discussion. CORBY/GRISELDA Voice ID: [id number] Report ID: [id number]
--- NOTE | 2020-01-08 13:21 | PREOPHP ---
Date of Admission: 01/08/2020 History Of Present Illness: 29-year-old 5, para 4, followed antepartum without complications . Admitted to Labor and Delivery in active labor. Family History: Noncontributory. Past Medical History: No serious illnesses. Had chlamydia in 2017, successfully treated. Past Surgical History: No surgery. Allergies: NO ALLERGIES. Medications: No medicines prior to admission other than vitamins and iron. Social History: Does not smoke. Physical Examination: HEENT: Clear. Pupils equal, round, and reactive to light and accommodation. Conjunctivae well perf used. No oral, lingual, or buccal lesions. Chest and Lungs: Clear. Breasts: Not examined. Abdomen: Term. Extremities: Clear without edema, cyanosis, or clubbing. The patient was 4.5 cm, 100% effaced, 0 st ation, bulging membranes on admission. Admit for rupture of membranes, stabilization and delivery. Full labor talk given. CORBY/GRISELDA Voice ID: [id number]
[2020-01-08] MEDS: Oxycodone HCl/Acetaminophen 1 TAB TAB PO PRN ×2 (16:00→20:36)
--- NOTE | 2020-01-08 19:22 | OP ---
Surgeon: Lanre Monge MD Radha Beckman is a 29-year-old, 5, para 4, 40 weeks gestation, followed antepartum, noted to be anemic and stayed that way during the entire in spite of request to take extra iron dur ing the . B positive. Immune to rubella. Strep negative. Refused COVID testing. Came in early labor. She had Stadol 1 mg IV, Phenergan 25 mg IM, followed by epidural anesthesia. Rupture of membranes at approximately 4.5 cm. Term looking fluid, possibly very light meconium, but basicall y term fluid. FHTs normal and reactive the entire time. Second stage of about 30 minutes or less. Once the patient began to feel her contractions and pressure, she could push and delivered quickly of an estimated 7-pound plus male . Nuchal cord x2 loosely. Apgars 9 and 9. No episiotomy. No lacerations worthy of suturing. Schultze delivery of the placenta, which inspected and noted be int act and normal. 250 mL or less blood loss. Tolerated all procedures well. Final Diagnoses: Intrauterine gestation, 40 weeks, vaginal delivery, epidural anesthesia. Nuchal co rd x2 loosely. COVID testing declined. CORBY/GRISELDA Voice ID: [id number] Report ID: [id number]
[2020-01-09 01:48] LABS: RPR (Rapid Plasma Reagin) NON-REACT (NON-REACT)
[2020-01-09] MEDS: Oxycodone HCl/Acetaminophen 1 TAB TAB PO PRN ×2 (07:05→11:12)
--- NOTE | 2020-01-09 08:48 | DS ---
29-year-old, 5, para 4, 40 weeks gestation, came in active labor. Delivered a 7 pounds 7 oun tawanna male , Apgars 9 and 9. Loose nuchal cord x2. No episiotomy. No laceration. Laurele azul vieyra of the placenta, inspected and noted to be intact and normal. 250 mL or less blood loss. Rh p ositive, immune to Rubella. Negative beta strep screen. Declined COVID testing. ; afebri le, ambulating and voiding. Lochia is normal. To call my office tomorrow to make an appointment to see me in 6 weeks. Tramadol for analgesia; she knows this goes through the breast milk and will be c areful about taking the medicine no more than every 6-8 hours, 15 given. Tdap and flu shots offered, no reports of problems other than after-pains which of course occur when she is and he ars the baby cry. She knows these are normal and should get better within the next day or so. Lochi a is absolutely normal. Final Diagnoses: Term intrauterine 40 weeks, vaginal delivery, epidural anesthesia. Tdap and flu shots offered. COVID testing declined. CORBY/GRISELDA Voice ID: [id number] Report ID: [id number]
[2020-01-09 11:20] VITALS: BP 97/58; TEMP 98
[2020-01-11 02:39] LABS: HBsAG Nonreactive (Nonreactive)
== END 2020-01-09 12:55 | disposition home or self-care (01) | DRG 807 ==
LOC: L&D 06:49 → 2ND-WC 07:36
PROVIDERS: ADMIT Specialist; ATTEND Specialist
PROC: 10E0XZZ Delivery of Products of Conception, External Approach (ICD-10-PCS; principal; 2020-01-08)
PROC: 10907ZC Drainage of Amniotic Fluid, Therapeutic from Products of Conception, Via Natural or Artificial Opening (ICD-10-PCS; 2020-01-08)
DX: O99.02 Anemia complicating childbirth (principal); Z37.0 Single live birth; Z3A.40 40 weeks gestation of pregnancy
CPT/HCPCS: 36415; 85025; 86592; 86901; 87340; J0595; J2210; J2550; J2590; J2795; J3010; J7120

== ENCOUNTER 2023-07-20 14:01 | Emergency (ER) | payer OTHER ==
--- OUTSIDE RECORDS SUMMARY | 2023-07-20 14:05 | XMS REPORT | Continuity of Care Document ---
Author Name Unknown Address [address] [place] [address] [facility] Address [address] [place] [address] Care Team Providers Care Licensed Esthetician Name Role Phone BRIDGETT WHITESIDE Primary Care Physician Unavailab DEAN Love Attending Clinician Unav Dean Caldera MD Attending Clinician + Wallace Schultz DO Attending Clinician [phone] Corey Berkowitz MD Attending Clinician [phone] BHAVIK CARNES Attending Clinician Unavailable BHAVIK CARNES Attending Clinician Unavailable BRIANNE SANTANA Attending Clinician Unavail able Brianne Pizano Attending Clinician + Doctor Unassigned, Green Attending Clinician U CORA Conn Attending Clinician Unavailable BRIDGETT WHITESIDE Attending Clinician Unavailable Devi Jordan PA-C Attending Clinician [phone] DEVI JORDAN Attending Clinician Unavailable Bridgett Whiteside MD Attending Clinician [phone], [facility] Attending Clinician Unavailable DEAN HASSAN Admitting Clinician Dean Perry MD Admitting Clinician + BHAVIK CARNES Admitting Clinician Unavailable Payers Payer Name Policy Type Policy Number Effective Date Expirati on Date Source [facility] [id number] 2017 00:00:00 Problems Condition Name Condition Details Condition Category Status Onset Date Resolution Date Last Treatment Date Treating Clinician Comments Source (spontaneo us vaginal delivery) (spontaneo us vaginal delivery) Disease Recurre nce 8-04 00:00: 00 [facility] 40 weeks gestation of 40 weeks gestation of Disease Active 8 00:00: 00 [facility] Obesity (BMI 30-39.9) Obesity (BMI 30-39.9) Disease Active 10-10 00:00: 00 [facility] Rubella non-immune status, antepartum Rubella non-immune status, antepartum Disease Active 09-19 00:00: 00 Overview: Formattin g of this note might be different from the original. Address pp [facility] History of abnormal cervical Pap smear History of abnormal cervical Pap smear Disease Active 09-18 00:00: 00 Overview: Formattin g of this note might be different from the original. Per pt in 2021, ROR requested [facility] History of anxiety History of anxiety Disease Active 09-18 00:00: 00 Overview: Formattin g of this note might be different from the original. Not on meds currently [facility] History of depression History of depression Disease Active 09-18 00:00: 00 Overview: Formattin g of this note might be different from the original. Not on meds [facility] Over weight Over weight Disease Active 09-18 00:00: 00 [facility] Multiparit y Multiparit y Disease Active 07-09 00:00: 00 [facility] Nausea/vom iting in Nausea/vom iting in Disease Active 07-09 00:00: 00 [facility] Supervisio n of high-risk with insufficie nt care Supervisio n of high-risk with insufficie nt care Disease Active 07-09 00:00: 00 [facility] Grand multiparit y Grand multiparit y Disease Active 07-09 00:00: 00 [facility] Supervisio n of high risk , antepartum Supervisio n of high risk , antepartum Disease Active 07-09 00:00: 00 [facility] Single live Single live Disease Active 2016-03 00:00: 00 [facility] Allergies, Adverse Reactions, Alerts Allergy Name Allergy Type Status Severity Reaction(s) Onset Date Inactive Date Treating Clinician Comments Source NO KNOWN ALLERGIE S Drug Class Active [facility] Social History Social Habit Start Date Stop Date Quantity Comments Source ASSERTION 2022-01-16 00:00:00 [facility] Exposure to SARS-CoV-2 (event) Not sure [facility] Gender identity [facility] Sexual orientation [facility] Alcohol intake 2022-10-11 00:00:00 2022-10-11 00:00:00 0 /d [facility] Tobacco use and exposure 2022-10-10 00:00:00 2022-10-10 00:00:00 Smokeless tobacco non-user [facility] History of Social function 2022-09-18 00:00:00 2022-09-18 00:00:00 [facility] History of tobacco use 2015-04-23 00:00:00 Passive smoker [facility] Sex Assigned At 1990 00:00:00 1990 00:00:00 [facility] Smoking Status Start Date Stop Date Source Ex-smoker 2022-10-10 00:00:00 2022-10-10 00:00:00 [facility] Medications Ordered Medication Name Filled Medication Name Start Date Stop Date Current Medication? Ordering Clinician Indication Dosage Frequency Signature (SIG) Comments Components Source vitamin w/FA tablet 10-12 00:00: 00 Yes [id number] 1{tbl} Take 1 tablet by mouth in the morning. [facility] docusate 100 mg capsule 10-12 00:00: 00 Yes [id number] 200mg Take 2 capsules by mouth once daily as needed for Constipati on. [facility] ferrous sulfate 325 mg (65 mg iron) tablet 10-12 00:00: 00 Yes [id number] 325mg Take 1 tablet by mouth in the morning and 1 tablet in the evening. [facility] ibuprofen 600 mg tablet 10-12 00:00: 00 Yes [id number] 600mg Take 1 tablet by mouth every 6 (six) hours as needed (Pain). Take with food or milk. [facility] hydrocortis one 1 % cream 10-11 22:01: 43 Yes Topical (Apply To Affected Areas), BIDPRN, Starting on Fri10/11/22 at 1701, Until Discontinu ed, Routine, Inflammati on [facility] rho(D) immune globulin (RHOGAM) syringe 300 mcg 10-11 09:37: 29 Yes 300ug 300 mcg, Intramuscu lar, ONCE, For 1 dose, Conditiona l, Routine [facility] ibuprofen (IBU) tablet 600 mg 10-11 09:37: 26 Yes 600mg 600 mg, Oral, Q6HPRN, Starting on Fri10/11/22 at 0437, Until Discontinu ed, Routine, Pain (scale 4-6) [facility] acetaminoph en (TYLENOL) tablet 650 mg 10-11 09:37: 26 Yes 650mg 650 mg, Oral, Q6HPRN, Starting on Fri10/11/22 at 0437, Until Discontinu ed, Routine, Pain (scale 1-3) [facility] diphenhydrA MINE (BENADRYL) tablet 25 mg 10-11 09:37: 26 Yes 25mg 25 mg, Oral, Q6HPRN, Starting on Fri10/11/22 at 0437, Until Discontinu ed, Routine, Sleep, Itching [facility] ondansetron (ZOFRAN (PF)) injection 4 mg 10-11 09:37: 26 Yes 4mg 4 mg, Slow IV Push, Q8HPRN, Starting on Fri10/11/22 at 0437, Until Discontinu ed, Routine, Nausea and Vomiting (N/V) [facility] simethicone (GAS RELIEF (SIMETHICON E)) chewable tablet 160 mg 10-11 09:37: 26 Yes 160mg 160 mg, Oral, PC+HSPRN, Starting on Fri10/11/22 at 043, Until Discontinu ed, Routine, Gas [facility] docusate (COLACE) capsule 200 mg 10-11 09:37: 26 Yes 200mg 200 mg, Oral, QDAILYPRN, Starting on Fri10/11/22 at 043, Until Discontinu ed, Routine, Constipati on [facility] magnesium hydroxide (MILK OF MAGNESIA) 400 mg/5 mL suspension 30 mL 10-11 09:37: 26 Yes 30mL 30 mL, Oral, QDAILYPRN, Starting on Fri10/11/22 at 043, Until Discontinu ed, Routine, Constipati on [facility] benzocaine- menthol (DERMOPLAST ) 20-0.5 % topical spray 10-11 09:37: 26 Yes Topical, PRN, Starting on Fri10/11/22 at 043, Until Discontinu ed, Routine, Perineum discomfort [facility] acetaminoph en (TYLENOL) tablet 650 mg 10-11 05:13: 25 Yes 650mg 650 mg, Oral, Q6HPRN, Starting on Fri10/11/22 at 001, Until Discontinu ed, Routine, Pain (scale 1-3) [facility] oxytocin (PITOCIN) 30 units in NS 500 mL IV infusion 10-11 05:13: 16 Yes 600mL/h 600 mL/hr, IV Infusion, PRN, For post delivery uterine atony., Starting on Fri10/11/[address] at 600 mL/hr for 1 hr then 150 mL/hr for 1 hr.
[facility] oxytocin (PITOCIN) 30 units in NS 500 mL IV infusion 10-11 05:13: 16 Yes 300mL/h 300 mL/hr, IV Infusion, SEE-INSTRU CTIONS, Starting on Fri10/11/[address] at 300 mL/hr for 1 hr then 150 mL/hr for 1 hr. For post delivery uterotonic .
[facility] ropivacaine 0.2 % (NAROPIN (PF)) epidural infusion 10-11 02:58: 00 10-11 05:33 :27 No Epidural, CONTINUOUS PRN, Starting on Mindy 10/10/22 at 2158, Until Fri10/11/22 at 0033, Routine, Intra-op [facility] lidocaine-e pinephrine (XYLOCAINE W/EPINEPHRI NE) 1.5 %-1:200,000 injection 10-11 02:54: 00 10-11 05:34 :24 No Epidural, ONCE INTRA PROCEDURE, Starting on Mindy 10/10/22 at 2154, Until Fri10/11/22 at 0034, Routine, Intra-op [facility] ondansetron (ZOFRAN (PF)) injection 4 mg 10-11 02:30: 00 10-11 01:45 :00 No 4mg 4 mg, Slow IV Push, ONCE, On Mindy 10/10/22 at 2130, For 1 dose
Do ses of ondansetro n 16 mg and above need to be administer ed via IV piggyback. For Dose >=24mg ECG monitoring is advisable.
[facility] sodium citrate-cit pedrito acid (BICITRA) 500-334 mg/5 mL solution 30 mL 10-11 01:43: 13 10-11 02:21 :00 No 30mL 30 mL, Oral, PRE-PROCED URE ONCE, 1 dose, Starting on Mindy 10/10/22 at 2042, Until Mindy 10/10/22 at 2120, Routine, Surgery/Pr ocedure [facility] lactated ringers IV infusion 500 mL 10-11 01:43: 13 10-11 02:19 :00 No 500mL at 999 mL/hr, 500 mL, IV Infusion, PRN - SEE INSTRUCTIO NS, 1 dose, Starting on Mindy 10/10/22 at 2042, Until Fri10/10/22 at 2118, Routine [facility] D5W-LR IV infusion 1,000 mL 10-11 01:40: 58 10-11 09:37 :28 No 1000mL at 1-125 mL/hr, IV Infusion, TITRATE, Starting on Mindy 10/10/22 at 2040, Until Fri10/11/22 at 0437, Routine [facility] vits62/FA/o m3/dha/epa ( GUMMY ORAL) 10-10 16:59: 22 10-10 00:00 :00 No Take by mouth. [facility] cariprazine (VRAYLAR) 1.5 mg Cap 10-10 16:59: 22 10-10 00:00 :00 No [facility] clonazePAM 1 mg tablet 10-10 16:59: 22 10-10 00:00 :00 No 1mg Take 1 tablet by mouth in the morning and 1 tablet at noon and 1 tablet in the evening. [facility] ondansetron (ZOFRAN) 8 mg tablet 10-10 16:59: 22 10-10 00:00 :00 No 8mg Take 1 tablet by mouth every 8 (eight) hours as needed for Nausea and Vomiting (N/V) or N/V alternatin g with Promethazi ne. [facility] cariprazine (VRAYLAR) 1.5 mg Cap 09-18 13:56: 08 Yes [facility] clonazePAM 1 mg tablet 09-18 13:56: 08 Yes 1mg Take 1 tablet by mouth in the morning and 1 tablet at noon and 1 tablet in the evening. [facility] ondansetron (ZOFRAN) 8 mg tablet 09-18 13:56: 08 Yes 8mg Take 1 tablet by mouth every 8 (eight) hours as needed for Nausea and Vomiting (N/V) or N/V alternatin g with Promethazi ne. [facility] multivitami n ( VITAMIN) tablet 09-18 00:00: 10-10 00:00 :00 No [id number] 1{tbl} Take 1 tablet by mouth in the morning. [facility] ciprofloxac in-dexameth asone 0.3-0.1 % otic drops 7-17 00:00: 00 10-10 00:00 :00 No [id number] 4[drp] Place 4 Drops in right ear 2 (two) times daily. [facility] proMETHazin e 25 mg tablet 6 00:00: 10-10 00:00 :00 No [id number] 25mg Take 1 tablet by mouth every 6 (six) hours as needed for Nausea and Vomiting (N/V). [facility] vits62/FA/o m3/dha/epa ( GUMMY ORAL) 407 19:16: 09 Yes Take by mouth. [facility] vits62/FA/o m3/dha/epa ( GUMMY ORAL) 4 14:16: 09 Yes Take by mouth. [facility] proMETHazin e 25 mg tablet 05-31 00:00: 00 Yes [id number] 25mg Take 1 tablet by mouth every 6 (six) hours as needed for Nausea and Vomiting (N/V). [facility] doxylamine- pyridoxine, vit B6, (DICLEGIS) 10-10 mg per tablet 05-31 00:00: 10-10 00:00 :00 No [id number] 1{tbl} Take 1 tablet by mouth SEE-INSTRU CTIONS. [facility] PNV 102-iron-fo late 1-dss-dha (VITAFOL FE+, WITH DOCUSATE,) 90 mg iron-1 mg -50 mg-200 mg Cap 24 00:00: 00 06-14 00:00 :00 No [id number] Take 1 TAB-CAP/M2 by mouth daily. [facility] proMETHazin e 25 mg tablet 5- 00:00: 00 10-10 00:00 :00 No [id number] 25mg Take 1 tablet by mouth every 6 (six) hours as needed for Nausea and Vomiting (N/V). [facility] DICLEGIS 10-10 mg per tablet 2017- 4-10 00:00: 00 06-14 00:00 :00 No TAKE 2 TABLETS BY MOUTH AT BEDTIME [facility] Vital Signs Vital Name Observation Time Observation Value Comments S ource Systolic blood pressure 2022-10-12 12:27:00 107 mm[Hg] [facility] Diastolic blood pressure 2022-10-12 12:27:00 69 mm[Hg] [facility] Heart rate 2022-10-12 12:27:00 77 /min [facility] Body temperature 2022-10-12 12:27:00 36.89 [facility] Respiratory rate 2022-10-12 12:27:00 18 /min [facility] Oxygen saturation in Arterial blood by Pulse oximetry 2022-10-12 12:27:00 99 /min [facility] Body height 2022-10-11 01:00:00 154.9 cm [facility] Body weight 2022-10-11 01:00:00 72.576 kg [facility] BMI 2022-10-11 01:00:00 30.25 kg/m2 [facility] Systolic blood pressure 2022-10-10 21:30:00 111 mm[Hg] [facility] Diastolic blood pressure 2022-10-10 21:30:00 72 mm[Hg] [facility] Heart rate 2022-10-10 21:30:00 86 /min [facility] Respiratory rate 2022-10-10 21:30:00 18 /min [facility] Oxygen saturation in Arterial blood by Pulse oximetry 2022-10-10 21:30:00 97 /min [facility] Body temperature 2022-10-10 19:18:00 36.11 Am[facility] Systolic blood pressure 2022-09-18 18:45:00 108 mm[Hg] [facility] Diastolic blood pressure 2022-09-18 18:45:00 66 mm[Hg] [facility] Heart rate 2022-09-18 18:45:00 75 /min [facility] 2022-09-18 18:45:00 36.22 [facility] Respiratory rate 2022-09-18 18:45:00 18 /min [facility] Body height 2022-09-18 18:45:00 154.9 cm [facility] weight 2022-09-18 18:45:00 68.13 kg [facility] BMI 2022-09-18 18:45:00 28.38 kg/m2 [facility] Systolic blood pressure 2019-08-13 19:02:00 100 mm[Hg] [facility] Diastolic blood pressure 2019-08-13 19:02:00 63 mm[Hg] [facility] Heart rate 2019-08-13 19:02:00 88 /min [facility] Body temperature 2019-08-13 19:02:00 37 [facility] Respiratory rate 2019-08-13 19:02:00 18 /min [facility] Body height 2019-08-13 19:02:00 154.9 cm [facility] weight 2019-08-13 19:02:00 64.048 [facility] BMI 2019-08-13 19:02:00 26.68 kg/m2 [facility] Systolic blood pressure 2019-08-13 19:02:00 100 mm[Hg] [facility] Diastolic blood pressure 2019-08-13 19:02:00 63 mm[Hg] [facility] Heart rate 2019-08-13 19:02:00 88 /min [facility] Body temperature 2019-08-13 19:02:00 37 Amie [facility] Respiratory rate 2019-08-13 19:02:00 18 /min [facility] Body height 2019-08-13 19:02:00 154.9 cm [facility] Body weight 2019-08-13 19:02:00 64.048 [facility] BMI 2019-08-13 19:02:00 26.68 kg/m2 [facility] Systolic blood pressure 2019-06-15 19:14:00 104 mm[Hg] [place] [facility] Diastolic blood pressure 2019-06-15 19:14:00 72 mm[Hg] [facility] Heart rate 2019-06-15 19:14:00 91 /min [facility] Body temperature 2019-06-15 19:14:00 37.06 Amie [facility] Respiratory rate 2019-06-15 19:14:00 18 /min [facility] Body height 2019-06-15 19:14:00 152.4 cm [facility] Body weight 2019-06-15 19:14:00 58.06 kg [facility] BMI 2019-06-15 19:14:00 25.00 kg/m2 [facility] Procedures Procedure Date / Time Performed Performing Clinician Source CBC WITH DIFF 2022-10-12 09:38:00 El-Eislouis Alfarooq Y [facility] VENOUS CORD GAS 2022-10-11 05:03:00 El-Eishy, Alfarooq Y [facility] CENTRAL NEURAXIAL BLOCK 2022-10-11 02:00:00 Wallace Schultz [facility] CBC WITH DIFF 2022-10-11 01:43:00 El-Eishy, Alfarooq Y [facility] HEPATITIS B SURFACE ANTIGEN 2022-10-11 01:43:00 El-Eislouis Alfarooq Y [facility] HB ABO GROUPING 2022-10-11 01:43:00 El-Eishy Alfarooq Y [facility] RHO (D) IMMUNE GLOBULIN 2022-10-11 01:43:00 El-Eishy, Alfarooq Y [facility] HIV 1/2 AG-AB WITH REFLEX 2022-10-11 01:43:00 El-Eishy, Alfarooq Y [facility] SYPHILIS IGG/IGM 2022-10-11 01:43:00 El-Eislouis, Alfaroo q Y [facility] POCT URINALYSIS W/O SPECIFIC GRAVITY 2022-09-18 18:39:00 Brianne Santana [facility] POCT TEST 2022-09-18 18:38:00 Charly Santana estefany Santo [facility] ASSIGNMENT OF BENEFITS 2022-09-18 18:19:27 Docto r Unassigned, Green [facility] CBC WITH DIFFERENTIAL 2019-08-16 16:48:00 Bridgett Whiteside [facility] GLYCOSYLATED HEMOGLOBIN (A1C) 2019-08-16 16:48:00 Bridgett Whiteside [facility] POCT URINALYSIS W/O SPECIFIC GRAVITY 2019-08-13 00:00:00 WilllucilleDevi strong [facility] <14 WEEKS US LIMITED 2019-06-15 20:54:03 Bridgett Whiteside [facility] ASSIGNMENT OF BENEFITS 2019-06-15 18:57:57 Docto r Unassigned, Green [facility] POCT TEST 2019-06-15 00:00:00 Bridgett Whiteside [facility] Encounters Start Date/Time End Date/Time Encounter Type Admission Type Attending [facility] Care Department Encounter ID Source 2022-10-10 18:53:00 2022-10-12 13:00:00 Inpatient P DEAN HASSAN [facility] [id number] [facility] 2022-10-10 18:53:00 2022-10-12 13:00:00 Hospital Encounter [facility] [id number] 350.1.13.10 4.2.7.2.686 [id number] [facility] 2022-10-10 21:32:00 2022-10-11 00:33:00 Anesthesia Event Wallace Schultz Satoshi [facility] [id number] 350.1.13.10 4.2.7.2.686 [id number] [facility] 2022-10-10 13:51:00 2022-10-10 16:59:00 Outpatient P PRABHA, BHAVIK ADLER [facility] [id number] [facility] 2022-10-10 13:51:00 2022-10-10 16:59:00 Hospital Encounter Bhavik Carnes [facility] 1.2.840.114 350.1.13.10 4.2.7.2.686 [id number] [facility] 2022-10-07 15:15:00 2022-10-07 15:15:00 Outpatient R BRIANNE SANTANA [facility] [id number] [facility] 2022-09-27 13:15:00 2022-09-27 13:15:00 Outpatient R BRIANNE SANTANA [facility] [id number] [facility] 2022-09-18 13:45:00 2022-09-18 14:49:33 Outpatient R BRIANNE SANTANA [facility] [id number] [facility] 2022-09-18 13:45:00 2022-09-18 14:49:33 Initial Visit Brianne Santana [facility] C 40A CREW CHIEF [facility] 1.2.840.114 350.1.13.10 4.2.7.2.686 [id number] [facility] 2022-09-18 00:00:00 2022-09-18 00:00:00 Orders Only Doctor Unassigned, Green [facility] 1.2.840.114 350.1.13.10 4.2.7.2.686 [id number] [facility] 2021-08-08 15:00:00 2021-08-08 15:00:00 Outpatient R CORA BIGGS [facility] [id number] [facility] 2019-10-12 13:00:00 2019-10-12 13:00:00 Outpatient R BRIDGETT WHITESIDE [facility] [id number] [facility] 2019-09-24 16:10:20 2019-09-24 16:25:20 Telemedici ne Visit Devi Jordan [facility] 1.2.840.114 350.1.13.10 4.2.7.2.686 [id number] [facility] 2019-09-24 16:10:20 2019-09-24 16:25:20 Telemedici ne Visit [facility]i [facility] 1.2.840.114 350.1.13.10 4.2.7.2.686 [id number] 2019-09-24 16:15:00 2019-09-24 16:15:00 Outpatient R DEVI JORDAN [facility] [id number] [facility] 2019-09-24 00:00:00 2019-09-24 00:00:00 [facility] 1.2.840.114 350.1.13.10 4.2.7.2.686 [id number] [facility] 2019-09-24 00:00:00 2019-09-24 00:00:00 Telephone Bridgett Whiteside [facility] 1.2.840.114 350.1.13.10 4.2.7.2.686 [id number] 2019-09-22 00:00:00 2019-09-22 00:00:00 Telephone Bridgett Whiteside [place] [facility] 1.2.840.114 350.1.13.10 4.2.7.2.686 [id number] [facility] 2019-09-22 00:00:00 2019-09-22 00:00:00 Telephone Bridgett Whiteside [facility] 1.2.840.114 350.1.13.10 4.2.7.2.686 [id number] 2019-09-14 12:58:44 2019-09-14 15:18:12 Telemedici ne Visit Whiteside, [facility] 1.2.840.114 350.1.13.10 4.2.7.2.686 [id number] [facility] 2019-09-14 12:58:44 2019-09-14 15:18:12 Telemedici ne Visit Bridgett Whiteside [facility] 1.2.840.114 350.1.13.10 4.2.7.2.686 [id number] 2019-09-14 13:15:00 2019-09-14 13:15:00 Outpatient R BRIDGETT WHITESIDE [facility] [id number] [facility] 2019-08-27 13:00:00 2019-08-27 13:00:00 Outpatient R [facility] [id number] [facility] 2019-08-24 00:00:00 2019-08-24 00:00:00 Telephone Bridgett Whiteside [facility] Building 1.2.840.114 350.1.13.10 4.2.7.2.686 [id number] [facility] 2019-08-24 00:00:00 2019-08-24 00:00:00 Telephone Bridgett Whiteside [facility] [place] [facility] 1.2.840.114 350.1.13.10 4.2.7.2.686 [id number] 2019-08-16 11:46:17 2019-08-16 12:01:17 Salesperson Flowers Visit 2, Adc Lab Bridgett Whiteside [facility] 1.2.840.114 350.1.13.10 4.2.7.2.686 [id number] [facility] 2019-08-16 11:46:17 2019-08-16 12:01:17 Salesperson Flowers Visit 2, Adc Lab [facility] nal Building 1.2.840.114 350.1.13.10 4.2.7.2.686 [id number] 2019-08-16 11:30:00 2019-08-16 11:30:00 Outpatient R BRIDGETT WHITESIDE [facility] [id number] [facility] 2019-08-13 13:39:37 2019-08-13 15:12:57 Routine Visit Devi [facility] 1.2.840.114 350.1.13.10 4.2.7.2.686 [id number] [facility] 2019-08-13 13:39:37 2019-08-13 15:12:57 [facility] 1.2.840.114 350.1.13.10 4.2.7.2.686 [id number] 2019-08-13 13:30:00 2019-08-13 13:30:00 [id number] 2019-07-13 10:56:17 2019-07-13 14:01:45 [facility]medici ne [facility] 1.2.840.114 350.1.13.10 4.2.7.2.686 [id number] 134 [id number] [facility] 2019-07-13 14:00:00 2019-07-13 14:00:00 Outpatient R BRIDGETT WHITESIDE [facility] [id number] [facility] 2019-06-16 13:00:00 2019-06-16 13:00:00 Outpatient R [facility] [id number] [facility] 2019-06-15 13:58:28 2019-06-15 14:34:41 Routine Visit Bridgett Whiteside [facility] 1.2.840.114 350.1.13.10 4.2.7.2.686 [id number] 134 [id number] [facility] 2019-06-15 13:45:00 2019-06-15 13:45:00 Outpatient R BRIDGETT WHITESIDE [facility] [id number] [facility] 2019-06-15 00:00:00 2019-06-15 00:00:00 Orders Only Doctor Unassigned, Green [facility] 1.2.840.114 350.1.13.10 4.2.7.2.686 [id number] [facility] 2019-06-14 00:00:00 2019-06-14 00:00:00 Telephone Bridgett Whiteside [facility] [place] Profess nal Building 1.2.840.114 350.1.13.10 4.2.7.2.686 [id number] 134 [id number] [facility] 2019-06-03 00:00:00 2019-06-03 00:00:00 Telephone Bridgett Whiteside [facility] 1.2.840.114 350.1.13.10 4.2.7.2.686 [id number] 134 [id number] [facility] 2019-06-03 00:00:00 2019-06-03 00:00:00 Telephone Bridgett Whiteside [facility] [place] Professio nal Building 1.2.840.114 350.1.13.10 4.2.7.2.686 [id number] 134 [id number] [facility] 2019-06-03 00:00:00 2019-06-03 00:00:00 Telephone Bridgett Whiteside [facility] 1.2.840.114 350.1.13.10 4.2.7.2.686 [id number] 134 [id number] [facility] 2019-06-02 00:00:00 2019-06-02 00:00:00 Telephone Bridgett Whiteside [facility] 1.2.840.114 350.1.13.10 4.2.7.2.686 [id number] 134 [id number] [facility] 2019-06-02 00:00:00 2019-06-02 00:00:00 Telephone Bridgett Whiteside [facility] 1.2.840.114 350.1.13.10 4.2.7.2.686 [id number] 134 [id number] [facility] 2019-06-01 10:51:28 2019-06-01 16:59:11 Telemedici ne Visit Bridgett Whiteside [facility] 1.2.840.114 350.1.13.10 4.2.7.2.686 [id number] 134 [id number] [facility] 2019-06-01 14:30:00 2019-06-01 14:30:00 Outpatient R [facility] [id number] [facility] 2019-06-01 00:00:00 2019-06-01 00:00:00 Telephone Bridgett Whiteside [facility] 1.2.840.114 350.1.13.10 4.2.7.2.686 [id number] 134 [id number] [facility] Results Test Description Test Time Test Comments Results Result Co mments Source [facility] IMMUNE [id number] 09:42:23* Test Item Value Reference Range Interpretation Comme nts RHIG CANDIDATE? (test code = 5188) No- see comment Patient is not a candidate for RhIg- Patient is Rh Positive.Performed at [facility] Laboratory Services - [facility] Blood [address] [place] [address]Hevl Free: [phone] No. [id number] [facility] SouthVenous Cord [id number] 05:15:40* Test Item Value Reference Range Interpretation Comme nts VENOUS BASE EXCESS, CORD (test code = 7853787403) -0.3 mEq/L VENOUS PH, CORD (test code = 0578325388) 7.37 7.25-7.45 VENOUS PC02, CORD (test code = 7000074168) 45 See_Comment [Automated messa ge] The system which generated this result transmitted reference range: 27 - 49 mmHg. The reference range was not used to interpret this result as normal/abnormal. VENOUS PO2, CORD (test code = 5754451304) 24 See_Comment [Automated me ssage] The system which generated this result transmitted reference range: 17 - 41 mmHg. The reference range was not used to interpret this result as normal/abnormal. VENOUS BICARBONATE, CORD (test code = 7363036711) 25 See_Comment QUES [Automated message] The system which generated this result transmitted reference range: 12 - 29 mEq/L. The reference range was not used to interpret this result as normal/abnormal. [facility] SouthArterial Cord [id number] 05:15:29* Test Item Value Reference Range Interpretation Comme nts BASE EXCESS, CORD (test code = 6478645456) -1.2 mEq/L QUES AC PH, CORD (BEAKER) (test code = 0940830621) 7.27 7.18-7.38 PC02, CORD (test code = 3934336824) 61 See_Comment [Automated messa ge] The system which generated this result transmitted reference range: 32 - 66 mmHg. The reference range was not used to interpret this result as normal/abnormal. PO2, CORD (test code = 1044961476) 25 See_Comment [Automated messa ge] The system which generated this result transmitted reference range: 10 - 30 mmHg. The reference range was not used to interpret this result as normal/abnormal. BICARBONATE, CORD (test code = 0766515332) 27 See_Comment [Automated messa ge] The system which generated this result transmitted reference range: 17 - 27 mEq/L. The reference range was not used to interpret this result as normal/abnormal. [facility]HIV 1/2 AG-AB WITH [id number] 03:19:39* Test Item Value Reference Range Interpretation Comme [facility] HIV Semi-quantitative (test code = 59975-7) 0.11 Negative SAVANNA (test code = SAVANNA) Non-reactive for HIV-1 antigen and HIV-1/HIV-2 antibodies. ?No laboratory evidence of HIV infection. ?Repeat in 2-4 weeks if acute HIV infection is suspected. [facility] SouthHepatitis B Surface [id number] 03:09:56 * Test Item Value Reference Range Interpretation Comme nts HBsAg Semi-Quantitative (carly t code = 5195-3) 0.13 Negative [facility] SouthType and Screen - ONCE [id number] 02:03:00 * Test Item Value Reference Range Interpretation Comme nts ABO & RH (test code = 20) B POSITIVE IAT (test code = 1185) Negative [facility] SouthCBC with Btxedsnjywhe6984-03-61 01:55:32* Test Item Value Reference Range Interpretation Comme nts WBC (test code = 6690-2) 14.01 See_Comment H [Automated message] The system which generated this result transmitted reference range: 4.30 - 11.10 10*3/?L. The reference range was not used to interpret this result as normal/abnormal. RBC (test code = 789-8) 3.66 See_Comment L [Automated message] The system which generated this result transmitted reference range: 3.93 - 5.25 10*6/?L. The reference range was not used to interpret this result as normal/abnormal. HGB (test code = 718-7) 10.8 g/dL 11.6-15.0 L HCT (test code = 4544-3) 33.0 % 35.7-45.2 L MCV (test code = 787-2) 90.2 fL 80.6-95.5 MCH (test code = 785-6) 29.5 pg 25.9-32.8 MCHC (test code = 786-4) 32.7 g/dL 31.6-35.1 RDW-SD (test code = 42503-4) 43.8 fL 39.0-49.9 RDW-CV (test code = 788-0) 13.2 % 12.0-15.5 PLT (test code = 777-3) 362 See_Comment H [Automated message] The system which generated this result transmitted reference range: 166 - 358 10*3/?L. The reference range was not used to interpret this result as normal/abnormal. MPV (test code = 33849-1) 8.4 fL 9.5-12.9 L NRBC/100 WBC (test code = 9424594523) 0.0 See_Comment [Automated message] The system which generated this result transmitted reference range: 0.0 - 10.0 /100 WBCs. The reference range was not used to interpret this result as normal/abnormal. NRBC x10^3 (test code = 4262931929) See_Comment [Automated message] The system which generated this result transmitted reference range: 10*3/?L. The reference range was not used to interpret this result as normal/abnormal. GRAN MAT (NEUT) % (test code = 770-8) 78.5 % IMM GRAN % (test code = 3287614957) 0.60 % LYMPH % (test code = 736-9) 15.0 % MONO % (test code = 5905-5) 4.6 % EOS % (test code = 713-8) 1.1 % BASO % (test code = 706-2) 0.2 % GRAN MAT x10^3(ANC) (test code = 2543623183) 11.00 10*3/uL 1.88-7.09 H IMM GRAN x10^3 (test code = 6271600616) 0.09 10*3/uL 0.00-0.06 H LYMPH x10^3 (test code = 731-0) 2.10 10*3/uL 1.32-3.29 MONO x10^3 (test code = 742-7) 0.64 10*3/uL 0.33-0.92 EOS x10^3 (test code = 711-2) 0.15 10*3/uL 0.03-0.39 BASO x10^3 (test code = 704-7) 0.03 10*3/uL 0.01-0.07 Lab Interpretation (test code = 75488-6) Abnormal [facility] [id number] 18:39:00* Test Item Value Reference Range Interpretation Comme nts POCT PREG (test code = 1605) Positive On board controls acceptable with C Line (test code = 3574) Yes POCT PREG LOT # (test code = 3575) POCT PREG TEST DATE ( test code = 3576) [facility] URINALYSIS W/O SPECIFIC [id number] 18:39:00* Test Item Value Reference Range Interpretation Comme nts POCT PH U (test code = 3254) 7 mg/dl 5-8 POCT U LEUK EST (test code = 3263) 1+ Negative - Negative POCT U NIT (test code = 3262) neg Negative - Negati ve POCT U PROT (test code = 3259) trace Negative - Negat magdalena POCT U GLU (test code = 3256) neg Negative - Negati ve POCT U KETONE (test code = 3258) neg Negative - Neg ative POCT U BLD (test code = 3257) neg Negative - Negati ve [facility] [id number] 18:39:00* Test Item Value Reference Range Interpretation Comme nts POCT PREG (test code = 1605) Positive On board controls acceptable with C Line (test code = 3574) Yes POCT PREG LOT # (test code = 3575) POCT PREG TEST DATE ( test code = 357) [facility] URINALYSIS W/O SPECIFIC [id number] 18:39:00* Test Item Value Reference Range Interpretation Comme nts POCT PH U (test code = 3254) 7 mg/dl 5-8 POCT U LEUK EST (test code = 3263) 1+ Negative - Negative POCT U NIT (test code = 3262) neg Negative - Negati ve POCT U PROT (test code = 3259) trace Negative - Negat magdalena POCT U GLU (test code = 3256) neg Negative - Negati ve POCT U KETONE (test code = 3258) neg Negative - Neg ative POCT U BLD (test code = 3257) neg Negative - Negati ve [facility] [id number] 18:39:00* Test Item Value Reference Range Interpretation Comme nts POCT PREG (test code = 1605) Positive On board controls acceptable with C Line (test code = 3574) Yes POCT PREG LOT # (test code = 3575) POCT PREG TEST DATE ( test code = 3576) [facility] URINALYSIS W/O SPECIFIC [id number] 18:39:00* Test Item Value Reference Range Interpretation Comme nts POCT PH U (test code = 3254) 7 mg/dl 5-8 POCT U LEUK EST (test code = 3263) 1+ Negative - Negative POCT U NIT (test code = 3262) neg Negative - Negati ve POCT U PROT (test code = 3259) trace Negative - Negat magdalena POCT U GLU (test code = 3256) neg Negative - Negati ve POCT U KETONE (test code = 3258) neg Negative - Neg ative POCT U BLD (test code = 3257) neg Negative - Negati ve [facility] SouthGLYCOSYLATED HEMOGLOBIN (A1C)2019-08-16 19:23:00* Test Item Value Reference Range Interpretation Comments HGB A1C (test code = 4548-4) See_Comment [Automated message] The system which generated this result transmitted reference range: 4.0 - 6.0 % NGSP. The reference range was not used to interpret this result as normal/abnormal. SAVANNA (test code = SAVANNA) %A1C (NGSP) Interpretation (ADA)4.8-5.6 ? ? Normal or (Non-Diabetic Range)5.7-6.4 ? ? Increased Risk (Pre-Diabetic)>6.5 ?Diabetes Indicated Lab Interpretation (test code = 06570-1) Normal [facility] WITH [id number] 17:19:00* Test Item Value Reference Range Interpretation Comme nts WBC (test code = 6690-2) See_Comment H [Automated messa ge] The system which generated this result transmitted reference range: 4.30 - 11.10 10*3/?L. The reference range was not used to interpret this result as normal/abnormal. RBC (test code = 789-8) See_Comment L [Automated messa ge] The system which generated this result transmitted reference range: 3.93 - 5.25 10*6/?L. The reference range was not used to interpret this result as normal/abnormal. HGB (test code = 718-7) 11.4 g/dL 11.6-15 L HCT (test code = 4544-3) 33.6 % 35.7-45.2 L MCV (test code = 787-2) 89.8 fL 80.6-95.5 MCH (test code = 785-6) 30.5 pg 25.9-32.8 MCHC (test code = 786-4) 33.9 g/dL 31.6-35.1 RDW-SD (test code = 53082-7) 43.4 fL 39-49.9 RDW-CV (test code = 788-0) 13.2 % 12-15.5 PLT (test code = 777-3) See_Comment [Automated messa ge] The system which generated this result transmitted reference range: 166 - 358 10*3/?L. The reference range was not used to interpret this result as normal/abnormal. MPV (test code = 04550-3) 8.3 fL 9.5-12.9 L NRBC/100 WBC (test code = 4377662714) See_Comment [Automated [employer] ssage] The system which generated this result transmitted reference range: 0.0 - 10.0 /100 WBCs. The reference range was not used to interpret this result as normal/abnormal. NRBC x10^3 (test code = 1063588926) <0.01 See_Comment [Automated messa ge] The system which generated this result transmitted reference range: 10*3/?L. The reference range was not used to interpret this result as normal/abnormal. GRAN MAT (NEUT) % (test code = 770-8) 78.3 % IMM GRAN % (test code = 9634804638) 0.60 % LYMPH % (test code = 736-9) 14.9 % MONO % (test code = 5905-5) 3.3 % EOS % (test code = 713-8) 2.7 % BASO % (test code = 706-2) 0.2 % GRAN MAT x10^3(ANC) (test code = 9539724035) 8.87 10*3/uL 1.88-7.09 H IMM GRAN x10^3 (test code = 0717554504) 0.07 10*3/uL 0-0.06 H LYMPH x10^3 (test code = 731-0) 1.69 10*3/uL 1.32-3.29 MONO x10^3 (test code = 742-7) 0.37 10*3/uL 0.33-0.92 EOS x10^3 (test code = 711-2) 0.31 10*3/uL 0.03-0.39 BASO x10^3 (test code = 704-7) <0.03 0.01-0.07 Lab Interpretation (test code = 51080-7) Abnormal [facility] URINALYSIS W/O SPECIFIC [id number] 19:04:00* Test Item Value Reference Range Interpretation Comme nts POCT PH U (test code = 3254) n/a 5-8 POCT U LEUK EST (test code = 3263) n/a Negative - N egative POCT U NIT (test code = 3262) n/a Negative - Negati ve POCT U PROT (test code = 3259) neg Negative - Negat magdalena POCT U GLU (test code = 3256) neg Negative - Negati ve POCT U KETONE (test code = 3258) n/a Negative - Neg ative POCT U BLD (test code = 3257) n/a Negative - Negati ve Lab Interpretation (test cod e = 60032-1) Normal [facility] URINALYSIS W/O SPECIFIC [id number] 19:04:00* Test Item Value Reference Range Interpretation Comme nts POCT PH U (test code = 3254) n/a 5-8 POCT U LEUK EST (test code = 3263) n/a Negative - N egative POCT U NIT (test code = 3262) n/a Negative - Negati ve POCT U PROT (test code = 3259) neg Negative - Negat magdalena POCT U GLU (test code = 3256) neg Negative - Negati ve POCT U KETONE (test code = 3258) n/a Negative - Neg ative POCT U BLD (test code = 3257) n/a Negative - Negati ve Lab Interpretation (test cod e = 28876-5) Normal [facility]<14 WEEKS US [id number] 20:55:07Limited USG for FHT: ?Single live IUP measured 10 4/7 weeks, not consistent with LMP. ?Will date bythis USG unless clinically indicated otherwise Bridgett Whiteside MD ?06/15/2019 ?3:55 [facility] [id number] 19:20:00* Test Item Value Reference Range Interpretation Comme nts POCT PREG (test code = 1605) Positive On board controls acceptable with C Line (test code = 3574) Yes POCT PREG LOT # (test code = 3575) POCT PREG TEST DATE ( test code = 3576) Lab Interpretation (test cod e = 56214-7) Abnormal [facility] History and Physical Notes Date/Time Note Provider Source 2022-10-10 20:44:09 [id number] H5I/NSsV0yVqc7vPUhqNFR l6ijbFxg+vOfG3y3yt7JRL7085-63-21U11:44:09F ormatting of this note is different from the original.TRIAGE/L&D HISTORY & PHYSICALIDENTIFYING DATAAilyn Pascal is 32 year old, /White, 40w1d, female with ARACELI 10/09/2022, Alternate ARACELI Entry. : 1990MRN: [id number] Care Physician: Bridgett Torres COMPLAINTContractionsHISTORY OF PRESENT ILLNESSAilyn Pascal is a 32 year old at 40w1d who presents for contractions.Patient denies vaginal bleeding, denies leakage of fluid, admits contractions. Patient denies headache, admits nausea that began just now, denies RUQ pain, denies visual abnormalities.Endorses normal movement.PAST OBSTETRIC HISTORYOB History Para Term AB Living 6 4 4 0 0 4 SAB IAB Ectopic Multiple Live Births 0 0 0 0 4 # Outcome Date GA Lbr Felix/2nd Weight Sex Delivery Anes PTL Lv 6 Current 5 Term 02/04/18 38w6d 2268 g F Vag-Spont PRERNA 4 Term 01/08/17 39w1d 2830 g F VAGINAL Declines PRERNA 3 Term 04/02/12 38w0d 3147 g M NORMAL SPONT None N PRERNA 2 Term 12/31/10 38w0d 3090 g F NORMAL SPONT None N PRERNA 1 PAST MEDICAL HISTORYProblem list: Patient Active Problem List Diagnosis Date Noted 40 weeks gestation of 10/10/2022 Obesity (BMI 30-39.9) 10/10/2022 Rubella non-immune status, antepartum 09/19/2022 History of abnormal cervical Pap smear 09/18/2022 History of anxiety 09/18/2022 History of depression 09/18/2022 Over weight 09/18/2022 Supervision of high-risk with insufficient care 07/09/2017 Grand multiparity 07/09/2017 Nausea/vomiting in 07/09/2017 Operations: No past surgical history on file.Past Medical History: Diagnosis Date Anemia 2010 ongoing, iron pills supplement on occassion Anxiety 2011 ongoing- self manages Depression 2011 ongoing- self manages- denies current s/s STD (sexually transmitted disease) CURRENT HEALTH STATUSMedications: Current Facility-Administered Medications Medication Dose Route Frequency Last Rate Last Admin D5W-LR IV infusion 1,000 mL 1,000 mL IV Infusion TITRATE lactated ringers IV infusion 500 mL 500 mL IV Infusion ONCE lactated ringers IV infusion 500 mL 500 mL IV Infusion PRN - SEE INSTRUCTIONS lidocaine 1% (PF) (XYLOCAINE) injection 0.3 mL 0.3 mL Infiltration PRN - SEE INSTRUCTIONS lidocaine 1% (XYLOCAINE) 10 mg/mL (1 %) injection 50 mL 50 mL Infiltration PRN - SEE INSTRUCTIONS ondansetron (ZOFRAN (PF)) injection 4 mg 4 mg Slow IV Push ONCE sodium citrate-citric acid (BICITRA) 500-334 mg/5 mL solution 30 mL 30 mL Oral PRE-PROCEDURE ONCE Allergies and drug reactions: Patient has no known allergies.HOME MEDICATIONSNo medications prior to admission. SOCIAL HISTORYTobacco History: Social History Tobacco Use Smoking Status Former Years: 8.00 Types: Cigarettes Quit date: 04/23/2015 Years since quittin.4 Passive exposure: Past Smokeless Tobacco Never Drug History: Social History Substance and Sexual Activity Drug Use No Alcohol History: Social History Substance and Sexual Activity Alcohol Use Not Currently Alcohol/week: 0.0 standard drinks of alcohol FAMILY HISTORYFamily History Problem Relation Age of Onset Diabetes Maternal Uncle Diabetes Maternal Grandmother Hypertension Maternal Grandmother Asthma Sister Asthma Brother No Significant Medical Problems Mother No Significant Medical Problems Father Arthritis NoFHx defects NoFHx Ovarian Cancer NoFHx Colon Cancer NoFHx Breast Cancer NoFHx Uterine Cancer NoFHx Cancer NoFHx Genetic NoFHx Depression NoFHx Heart NoFHx High cholesterol NoFHx Mental retardation NoFHx Neurological NoFHx Osteoporosis NoFHx Psychiatry NoFHx Other - see comments NoFHx REVIEW OF SYSTEMSGeneral: negativeSkin: negativeHEENT: negativeNeck: negativeHEME: negativeResp: negativeCardio: negativeGI: negativeGU: negativeEndo: negativeNeuro: negativeBack: negativeMSS: negativePsych: negativeVITAL SIGNSBP: (97-114)/(56-72) Temp: [36.1 ?C (97 ?F)] Temp source: Axillary (10/10 1418)Pulse: [69-86] Resp: [18] SpO2: [94 %-98 %] Height: [154.9 cm (5' 0.98")] Weight: [72.6 kg (160 lb)] BMI (calculated): [30.25] PHYSICAL EXAMINATIONSGeneral: patient alert and in no acute distressHEENT: symmetric, negative for massesLungs: unlabored breathingCardiology: peripheral pulses intact and regularAbdomen: soft, non-tender, non-distended, no liver, spleen or abnormal masses palpated and GravidExtremities: no clubbing, cyanosis, or edemaNeuro: patient moving all extremities, no facial droopGU: /-3 REVIEW OF LABORATORY, PATHOLOGY, AND RADIOLOGY DATALab results:Type & Screen Lab Results Component Value Date/Time IABORH B POSITIVE 09/18/2022 02:51 PM IAT Negative 09/18/2022 02:51 PM SerologiesLab Results Component Value Date/Time VZVIGG Positive 09/18/2022 02:54 PM HIVMULTIPLEX Non-reactive 10/25/2016 11:57 AM RUBG Negative 09/18/2022 02:54 PM SYPIGG Non-reactive 09/18/2022 02:54 PM SYPIGG Nonreactive 10/25/2016 11:57 AM HBSAG Negative 09/18/2022 02:54 PM HBSAG 0.06 09/18/2022 02:54 PM ChlamydiaLab Results Component Value Date/Time VCAA Negative 09/18/2022 03:04 PM Group B StrepLab Results Component Value Date/Time CGB Negative 09/18/2022 04:16 PM GTTLab Results Component Value Date/Time UTLG4NY 131 10/25/2016 11:57 AM CBCLab Results Component Value Date/Time HGB 11.6 09/18/2022 02:54 PM HCT 35.7 09/18/2022 02:54 PM PLT 402 (H) 09/18/2022 02:54 PM Active Hospital Problems Diagnosis Date Noted 40 weeks gestation of 10/10/2022 Obesity (BMI 30-39.9) 10/10/2022 Rubella non-immune status, antepartum 09/19/2022 Address pp History of abnormal cervical Pap smear 09/18/2022 Per pt in 2021, ROR requested History of depression 09/18/2022 Not on meds History of anxiety 09/18/2022 Not on meds currently Supervision of high-risk with insufficient care 07/09/2017 Grand multiparity 07/09/2017 Nausea/vomiting in 07/09/2017 Resolved Hospital Problems No resolved problems to display. Present on Admission: 40 weeks gestation of Rubella non-immune status, antepartum Supervision of high-risk with insufficient care Grand multiparity Nausea/vomiting in History of abnormal cervical Pap smear History of depression History of anxietyPlacenta Accreta ScreeningPrior ? : NoPrior Uterine Surgery?: NoPlacenta low lying/previa in current ? : NoScreening outcome:A positive screening outcome indicates a history of prior delivery or prior uterine surgery, AND the presence of either a placenta low lying/previa or ultrasound suspicion of PASD in the current . Negative screening.ASSESSMENT AND PLANElva Lorie Pascal is a 32 year old at 40w1d d/u (8) in OSH who presents for contractions.Contractions- Trang infrequently.- No VB, LOF, DFM- Does not desire pitocin infusion intrapartum or . Does not desire AROM, does not desire stripping of membranes- SVE: 350/-3- [place]: applied, contractions appear regular- Plan: Mom wishes to reassess desire for Pitocin after epidural, monitor Insufficient care- One appointment with [facility], [facility] [place], per patient missed many appointments- Dating based on patient report from ultrasounds at outside facilityAntepartum course reviewed- 1 h declined by patient, HgbA1c 5.8% sero negative, Rnot immune, VZVimmune, HPV immune, B positive/IAT negative, GBS negative, Pap NILM 07/01/18- H/H, plt: 11.6 / 35.7, 402 on 09/18/22- PP control plan: BTL no longer desired, plans on IUD- [place] RMCHPFetus- Presentation on admission: cephalic - anterior placenta - EFW by bedside ultrasound in triage: 3288 g, 23%tile- Bedside ultrasound consistent with dating appropriate with patient reported 8 week ultrasound.- FHT reactive and reassuring- Unknown anatomy scanD/w Dr. Petty Zendejas MD ssociated attestation - Dean Hassan MD - 10/11/2022 6:36 AM CDT I was L&D faculty on 10/10/2022 and agree with H&P below. I discussed the plan of care with the residents.Dean Hassan MD #[id number] and physical [id number] [id number] 619GltqvYkxjyzCgcrojqahLS3911-19-46O00:36: 38History and physical noteTXT1.2.840.559764.1.13.104.2.7.2.76991 9|[id number] for patient zyjc84866-8Ovyvjle and physical noteLNUTMBREHOBOTH MCKINLEY CH[facility]ARE SERVICES - [address]XtecBdlxehfgvOmpicebapVJIU5742301520IYIZVE HSHZSUISZZJWRFZJ4022-97-21Y45:36:381.2.840 .866431.1.72.3.15|1.2.840.809226.1.13.104. [id number] [facility] Procedure Notes Date/Time Note Provider Source 2022-10-10 23:14:36 /P+/egvJk/AbhTIlm05X pR6kgFrS77qD6 w+fADQaiMd92fMjD4WK7BnauMcfN3jJ50 30-10-02T23:14:36Associated Order(s): Central Neuraxial Block Central Neuraxial Block Date/Time: 10/10/2022 9:00 PMPerformed by: Wallace Schultz, DOAuthorized by: Corey Berkowitz MD Patient Location: OBReason for Block: OB request, Patient request and Labor analgesiaStaff: Anesthesiologist: Corey Berkowitz MD Resident/BOLT SORTER: Wallace Schultz DO Performed by: resident/CRNAPreanesthetic Checklist: patient identified, IV checked, risks and benefits explained, monitors and equipment checked, timeout performed, pre-op evaluation, site marked and anesthesia consentProcedure: Type of Neuraxial: Epidural Epidural Description: 1st attempt Sterility Prep cap, gloves, hand hygiene, mask and drape Sedation Level no sedation Patient Position: sitting Prep: Betadine and patient draped Monitoring: heart rate, continuous pulse ox, heart rate / toco and NIBP Location: lumbar (1-5) Lumbar: L4-L5 Approach: midline Technique: catheter and LOUIS saline Guidance with: landmark technique}Epidural/Spinal [place] and/or Catheter: Epidural/Spinal Kit: BBraun Needle Type: Tuohy Needle Gauge: 17 G Needle Length: 3.5 in (8.89 cm) Needle Insertion Depth: 5 Catheter Type: multiport Catheter Size: 18 G Catheter at Skin Depth: 10 Number of Attempts: 1 Test Dose: lidocaine 1.5% with epinephrine 1-to-200,000 and negative Dose: 3 cc Catheter Securement Method: surgical tape and TegadermAssessment: Block Outcome: a full evaluation is pending Procedure Assessment: patient tolerated procedure well with no complicationsNotes: Patient consented and positioned sitting upright with instructions given regarding positioning and maintaining a sterile field. Patient prepped and draped in sterile fashion. Epidural kit opened and medications prepared utilizing sterile protocol. Epidural placed with 1 attempt. No CSF visualized from needle hub. Catheter threaded without resistance. Negative aspiration x2, negative test dose. Epidural catheter secured in place using tegederm and tape while maintaining insertion site sterility. Patient instructed to lay back down on back and given instructions on CERTIFIED NUTRITIONIST functionality. Fall precautions provided, patient vocalized understanding and all questions answered. 54353-0Wzccvfvnhbxpkv procedure ufidUM1433-11-55A51:15:09Anesthes iology procedure noteTXT1.2.840.007969.1.13.104.2. 7.2.320460|[id number] for patient hzal50711-7Telvfdwr operation judcCZLV-MUEFMJPWFFRDPMEW-SSPUGRP O[address] ShtwRhsuqbumtLkotxhuqpBVHQ0002052 344VEKBTCCCATRLDQYITBSYHR4009-12- 03T23:15:091.2.840.287446.1.72.3. 15|1.2.840.589479.1.13.104.2.7.2. [id number] AN-ANESTHESIOLOGY [facility] Notes Date/Time Note Provider Source 2022-10-12 06:02:42 WEcDcPHe9AnHKfjdH/YXxjh3jjGtAyymnsW E7B9hGapCWi6yOkf+I4pEzUHxJpX91892-8 10-12T06:02:42 Problem: Falls, Risk ofGoal: Absence of fallsOutcome: Progressing as expected Problem: PainGoal: Control of pain at or below patient's documented comfort goalOutcome: Progressing as expectedGoal: Reduction in pain sensationOutcome: Progressing as expected Problem: Discharge Planning - PostpartumGoal: Adequate for dischargeOutcome: Progressing as expectedGoal: Mood stableOutcome: Progressing as expected Problem: Infection RiskGoal: Absence of infectionOutcome: Progressing as expected Problem: Breast-feeding - IneffectiveGoal: Effective breast-feedingOutcome: Progressing as expected 59047-4Qtzp of care fvbeNW4104-30-69J17:02:46Plan of care noteTXT1.2.840.189405.1.13.104.2.7. 2.686835|[id number] for patient grdz02120-9VegbCA362672548Ywosf Ham [address] Ootm[id number] 7MSRDBPHZHMAEPBMWRPLZXW1729-55-61R0 6:02:461.2.840.281638.1.72.3.15|1.2 .840.782826.1.13.104.2.7.2.727879_1 [id number] Emmy Hines [facility] 2022-10-11 16:35:32 wRyy/F5qaKc8JXGHlXao5d0Mg+N42YTqc2q 1h+HwBnPP/yMjoxA90gtwFxBbqn3Z2093-8 6:35:32 Problem: Falls, Risk ofGoal: Absence of falls10/11/2022 1635 by Lynn Cancino RNOutcome: Progressing as expected10/11/2022 1602 by Lynn Cancino RNOutcome: Progressing as expected Problem: PainGoal: Control of pain at or below patient's documented comfort goal10/11/2022 1635 by Lynn Cancino RNOutcome: Progressing as expected10/11/2022 1602 by Lynn Cancino RNOutcome: Progressing as expected Problem: PainGoal: Reduction in pain sensation10/11/2022 1635 by Lynn Cancino RNOutcome: Progressing as expected10/11/2022 1602 by Lynn Cancino RNOutcome: Progressing as expected Problem: Discharge Planning - PostpartumGoal: Adequate for discharge10/11/2022 1635 by Lynn Cancino RNOutcome: Progressing as expected10/11/2022 1602 by Lynn Cancino RNOutcome: Progressing as expected Problem: Discharge Planning - PostpartumGoal: Mood stable10/11/2022 1635 by Lynn Cancino RNOutcome: Progressing as expected10/11/2022 1602 by Lynn Cancino RNOutcome: Progressing as expected Problem: Infection RiskGoal: Absence of infection10/11/2022 1635 by Lynn Cancino RNOutcome: Progressing as expected10/11/2022 1602 by Lynn Cancino RNOutcome: Progressing as expected Problem: Breast-feeding - IneffectiveGoal: Effective breast-feeding10/11/2022 1635 by Lynn Cancino RNOutcome: Progressing as expected10/11/2022 1602 by Lynn Cancino RNOutcome: Progressing as expected 56377-2Bmkg of care qzazAP9312-01-94I60:35:44Plan of care noteTXT1.2.840.045997.1.13.104.2.7. 2.484962|[id number] for patient [id number] na Rivera [address] Bj[id number] 2QANRGGPTWOGVLVLHGXYZXD6762-44-27O2 6:35:441.2.840.149161.1.72.3.15|1.2 .840.448379.1.13.104.2.7.2.727879_1 [id number] Lynn Cancino [facility] 2022-10-11 16:02:16 X0ZGm0GKkj+Y5FpBirzxKmLyYOf3zeGSCYE 81xLoaMDrDh2EtlYEOJ8zEKS8zNSh8493-9 6:02:16 Problem: Falls, Risk ofGoal: Absence of fallsOutcome: Progressing as expected Problem: PainGoal: Control of pain at or below patient's documented comfort goalOutcome: Progressing as expected Problem: PainGoal: Reduction in pain sensationOutcome: Progressing as expected Problem: Discharge Planning - PostpartumGoal: Adequate for dischargeOutcome: Progressing as expected Problem: Discharge Planning - PostpartumGoal: Mood stableOutcome: Progressing as expected Problem: Infection RiskGoal: Absence of infectionOutcome: Progressing as expected 49717-3Aoao of care fmjkLI2658-64-54E34:02:33Plan of care noteTXT1.2.840.937573.1.13.104.2.7. 2.253627|[id number] for patient lmgk08423-9ZkdnNRHKRYNJWU[address] TkfuVvy[id number] 0KMESXEUIZEOYHDOIZIBKMT9289-17-69D1 6:02:331.2.840.144094.1.72.3.15|1.2 .840.439571.1.13.104.2.7.2.727879_1 [id number] [facility] 2022-10-11 15:15:47 8vqgJP46y4PS5uYi3g7EUSPV84P6vCtjHyu CpTjzD+xdu3NK/hEsW9NYBTtGsc356976-0 10-11T15:15:47 This note was copied from a baby's chart. Assessment (most recent) Assessment - 10/11/22 1430 General Information Visit Initial Percent of weight loss- Infant 0 Number of voids last 24 hours- Infant 0 Number of stools last 24 hours- Infant 0 Mom's age (years) 32 years Gestational age 40 weeks 6 Parity 6 Living Children 6 Feeding plan Breast Attended class No Breastfeed previously Yes Duration 1 year with last baby Age at that time 30 years Notes attempted to breast feed all of her children but was only able to do it for a short time with all but the last one which she breastfed for 1 year Used pump previously Yes plans As long as possible Planned maternity leave Stay at home mom Breast Pump [employer] Class Medicaid;WIC Delivery method Breast changes during Enlarged;Tenderness Periods Regular Risk factors Anemia;Obesity Drug History No Mental health history Depression;Anxiety Breast Surgery/ History None Infant Oral Assessment Oral assessment New assessment Date of 10/10/22 Time of 2357 Infant location Mother Baby Unit Palate assessment Normal Tongue assessment Normal Restricted tongue motion observed None ENT consult recommended No Upper lip assessment Normal;Can flange Infant head assessment No abnormalities Is this a multiple ? No Breast Assessment Breast Assessment Initial Symmetry Symmetrical Size M (B-C) Shape Tubular;Pendulous Other Soft Scars on breast: No Nipple & Areola Assessment Left Areola Pliable Right Areola Pliable Left Nipple Colostrum visible;Intact;Everted;Small Right Nipple Colostrum visible;Intact;Everted;Small Literature Resources Resources guide;Understanding Mother and Baby Care Education 6 months exclusive , up to and beyond 1 year with complimentary foods;Infant hunger cues;On-demand feeds at least 8 or more over 24 hours;Diaper counts/color;Benefits of breastmilk;Hand expression;Risk of formula supplementation;Delay of pacifier/artificial nipples up to 4 weeks;Benefits of skin to skin contact;Encouraged rooming-in;Waking techniques;Signs of an effective latch; stomach size;Calming techniques;2nd day/growth spurt cluster feeds;Position changes;Breaking seal;Maternal nutrition/hydration;Lactogenesis;Be nefits of breast massage and hand expression;Engorgement signs and treatment;Risks of mastitis and signs, seek medical attention immediately;Ways to increase milk supply Handouts given [employer] Aide Observation Pumping No Reported;Mom states latches well with no pain;Declines assisstance with latches Mother demonstrated teach back of Positioning and latching at breast Follow up Mom will call staff;[facility] warmline;WIC;[employer] Recommended Feeding Plan Recommended feeding plan On-demand , 8-12 times in 24 hours not to exceed 6 hours between feeds;Frequent pbpe-vh-nsfx time with parents Jude TANNER RN, IBCLC 31292-8Wtuugijngu GzfgJB3841-59-64R48:16:10Obstetrics NoteTXT1.2.840.923897.1.13.104.2.7. 2.194159|[id number] for patient jkwm92174-8DqmhMA839546349Umz Celos Gonzalez RNUT[address] [id number] 3ZOQIVNKKVUFWAMMYLLKMLN4338-57-93E2 5:16:101.2.840.196121.1.72.3.15|1.2 .840.581323.1.13.104.2.7.2.727879_1 [id number] Jude Celso Roth RN [facility] 2022-10-11 05:49:42 Z4ms4mcDyGdH4RI2HO4dJ2iKa6HuHv2OFyg qhpVrcW/7UGQmrDq938+9vQ7GSeni6811-2 05:49:42 Problem: Falls, Risk ofGoal: Absence of fallsOutcome: Progressing as expected Problem: PainGoal: Control of pain at or below patient's documented comfort goalOutcome: Progressing as expectedGoal: Reduction in pain sensationOutcome: Progressing as expected Problem: Discharge Planning - PostpartumGoal: Adequate for dischargeOutcome: Progressing as expectedGoal: Mood stableOutcome: Progressing as expected Problem: Infection RiskGoal: Absence of infectionOutcome: Progressing as expected Problem: Breast-feeding - IneffectiveGoal: Effective breast-feedingOutcome: Progressing as expected 75492-5Gotv of care onaiOU2150-74-43J50:49:44Plan of care noteTXT1.2.840.527535.1.13.104.2.7. 2.518522|[id number] for patient lmjx18440-1FlceRW328497524Multwuw Austria RN[id number] 1WNWIRBLODGAVNNTISHKJEE2386-16-32Y7 5:49:441.2.840.741711.1.72.3.15|1.2 .840.261599.1.13.104.2.7.2.727879_1 [id number] Cecelia Luna RN [facility] 2022-10-11 01:12:12 ze9bsCHtaWC7pOt4+7V6PURwX04J/eHX7kK K9U4d+Yy3FVA390G8ESsT1W9dRqr/10-11T01:12:12 Patient: Ailyn Pascal Procedure Summary Date: 10/10/22 Room / Location: Anesthesia Start: 2131 Anesthesia Stop: 10/11/2232 Procedure: CENTRAL NEURAXIAL BLOCK Diagnosis: Scheduled Providers: Responsible Provider: Corey Berkowitz MD Anesthesia Type: Epidural ASA Status: 2 Anesthesia Type: EpiduralLast vitalsBP 108/61 (10/11/2229) Temp 36.8 ?C (98.3 ?F) (10/11/2214) Pulse 83 (10/11/2229) Resp 18 (10/11/2214) SpO2 92 % (10/11/2229) There were no known notable events for this encounter.Anesthesia Post EvaluationPatient location during evaluation: bedsidePatient participation: complete - patient participatedLevel of consciousness: awake and alertPain score: 0Pain management: satisfactory to patientAirway patency: patentCardiovascular status: acceptable and blood pressure returned to baselineRespiratory status: acceptableHydration status: acceptable 52838-2Pjfhmsopcxvubi Postoperative evaluation and management bkmbXD7085-86-25J53:12:20Anesthesio logy Postoperative evaluation and management noteTXT1.2.840.816891.1.13.104.2.7. 2.810484|[id number] for patient jepn61064-2Uwzxdgca operation noteLNAN-ANESTHESIOLOGY ANESTHESIOLOGISTAN-ANESTHESIOLOGY ANESTHESIOLOGISTUT[address] Mvnw[id number] 6QVEVZTYPCKPPIMEYQJZDAK6909-47-03E5 1:12:201.2.840.583468.1.72.3.15|1.2 .840.209182.1.13.104.2.7.2.727879_1 [id number] AN-ANESTHESIOLOGY ANESTHESIOLOGIST [facility] 2022-10-11 00:18:25 Fs1G4/LL7fjN227gxFKgGQHUCUAQoWzn+zN NgNR2L4j4WRIs4QHaB3AfH4DFqMXq9900-6 00:18:25 DELIVERY BY SPONTANEOUS VAGINAL DELIVERYDelivery Date: 10/10/2022 Delivery Time: 11:57 PM Delivery Summary The patient was admitted to the Labor & Delivery unit for contractions at 40 weeksDelivery Physician: Christophe Paulino MDTeaching Assist: PRATIBHA Monaco Faculty: Dean Hassan MDIntrapartum Anesthesia/Analgesia: EpiduralMode of Delivery: Delivery of jc fetus with cephalic presentationFetusSpontaneous vaginal delivery of head with cephalic position, occipital anterior. As the head crowned and distended the perineum, no episiotomy was performed. A blue towel was used to protect the perineum as the head crowned and delivered. The other hand was used to exert pressure on the occiput to control the delivery of the head. The perineum was pushed with a towel-draped hand as the head and mouth was delivered over the perineum. The head was allowed to rotate externally to achieve natural body posture. Examination of neck revealed no umbilical cord. The shoulder was delivered by gentle downward traction applied to head and downward traction for the delivery of anterior shoulder. This was followed by upward traction with delivery of posterior shoulder and body. After the delivery of , bulb suction was performed from ororpharynx and nostril with removal of thin meconium. A normal, male was delivered.The umbilical cord was double clamped, cut and the was handed off the field to the circulating nursePlacentaPlacenta was delivered spontaneously while the abdominal hand lifted the uterus cephalad and other hand keeping the umbilical cord slightly taut. LacerationLaceration Repair: No laceration repair needed.Fourth StageFourth stage of labor was managed by uterine massage with abdominal hand and infusion 30 units of pitocin mixed with intravenous fluid at 300cc/hr.EBL: 250 Complications: NoneWeight: 3487 g 1 Minute 5 Minute 10 Minute Totals: 8 9 Christophe Paulino MD 10/11/2022 12:21 AM ssociated attestation - Dean Hassan MD - 10/11/2022 6:49 AM CDT I was present for the delivery on 10/11/[address] Paulino note for additional details. Dean Hassan MD #[id number] 05620-4Vpoip and delivery summary [id number] Hassane1.2.840.787672.1.13.104.2. 7.2.889254XuzklOuuwdvQstnssgyqOG248 05-16-03T06:49:12Labor and delivery summary noteTXT1.2.840.904617.1.13.104.2.7. 2.768499|[id number] for patient wgqw29027-2KibwNWHB-KDVSOL [address] Bj[id number] 5PRAEXPFLXEYAZVARQLFIMS4338-97-21R9 6:49:121.2.840.686136.1.72.3.15|1.2 .840.884899.1.13.104.2.7.2.727879_1 [id number] -[facility] 2022-10-10 23:15:36 SIS+pTwuFZwJ5gFEJxKXBzhPmHQztPEbMq+ Z2DdWUwY+C9rehhue122QUVBvYMCz8722-4 10-10T23:15:36 Name/ MRN / Age / Gender:Ailyn Pascal, [id number] year old female BMI:Estimated body mass index is 30.25 kg/m? as calculated from the following: Height as of this encounter: 1.549 m (5' 0.98"). Weight as of this encounter: 72.6 kg (160 lb). Allergies:Patient has no known allergies. Last Vitals:BP Readings from Last 1 Encounters: 10/10/22 106/58 Pulse Readings from Last 1 Encounters: 10/10/22 67 SpO2 Readings from Last 1 Encounters: 10/10/22 100% Date of Surgery: 10/10/2022Surgeon: * No surgeons listed *Procedure: CENTRAL NEURAXIAL BLOCKOR Location: [place] [facility] - OR LOCATIONAnesthesia Preop Eval (physical exam) Anesthesia Preop: Bdop-pk-Vslq and Chart ReviewAPAC questionnaire answers not incorporatedNPO Status VerifiedClear Liquids: > 2 HoursSolid Food/Non-Clear Liquids: > 8 HoursBreast Milk: > 4 HoursAnesthesia HistoryAnesthesia History Negative(-) Hx of anesthetic complicationsPrevious Anesthetics/AirwaysCardiovascularNe gative Cardiac ROS(-) Chest pain with 1-2 flights of stairs(-) Patient reports no hx of cardiac problems(-) Hypertension(-) CAD PulmonaryNegative Pulmonary ROS(-) Asthma(-) Tobacco use Neuro/Musculoskeletal(+) Obesity GI/Hepatic(+) GERD and can lay flat without symptoms HematologyComments: HGB (g/dL) Date Value 10/10/2022 10.8 (L) 10/10/222042 PLT 362* (+) Anemia(-) Coagulopathy RenalNegative Renal ROSComments: No results found for: "CREAT"No results found for: "K" Skin(+) Current IV access Endo/Other Negative Endo/Other ROS(-) Diabetes Mellitus Other (-) Tobacco use OB/GYNNegative C 40A CREW CHIEF ROSComments: Ailyn Pascal is a 32 year old at 40w1d d/u (8) in OSH who presents for contractions.?Contractions- Trang infrequently.- No VB, LOF, DFM- Does not desire pitocin infusion intrapartum or . Does not desire AROM, does not desire stripping of membranes- SVE: /-3- Harahan: applied, contractions appear regular- Plan: Mom wishes to reassess desire for Pitocin after epidural, monitor Insufficient care- One appointment with [facility], previous [facility] in [place], per patient missed many appointments- Dating based on patient report from ultrasounds at outside facility?Antepartum course reviewed- 1 h?declined by patient,?HgbA1c 5.8%?sero negative, Rnot immune, VZVimmune, HPV?immune,?B positive/IAT?negative, GBS?negative, Pap?NILM ?07/01/17- H/H, plt:?11.6?/ 35.7,?402?on 09/18/22- PP control plan:?BTL no longer desired, plans on IUD-?Mick CHP?Fetus- Presentation on admission: cephalic - anterior placenta - EFW by bedside ultrasound in triage: 3288 g, 23%tile- Bedside ultrasound consistent with dating appropriate with patient reported 8 week ultrasound.- FHT reactive and reassuring- Unknown anatomy scan PediatricPediatric N/A NeonatalNeonatal N/A Preoperative Medication InstructionsContinue taking all prescribed medications except:MIGUEL inhibitors, ARBs, diuretics, all oral diabetes medicationsAnticoagulant Therapy: Defer to surgeonsInsulin: Take 1/2 dose the night prior to surgery. Hold on DOS. Phentermine: Alert [facility] anesthesiologistSGLT2 Inhibitors: "gliflozins" to be held for 3 days prior to elective surgeries MAC Cases: Continue taking MIGUEL inhibitors and ARBs ASA ClassificationASA: 2 Current Medications:No outpatient medications have been marked as taking for the 10/10/22 encounter (Hospital Encounter). Previous Surgeries: No past surgical history on file.Anesthesia Physical ExamGeneralno apparent distress and alert and oriented x 3 Neuro/Psychneurological Nonfocal Dentalno notable dental hx Abdominal GI exam normal (+) benign and gravid Airway Mallampati score:II Extremity Normal extremity Pulmonarypulmonary exam normal and bilateral clear to auscultation Other Cardiovascularcardiovascular exam normalRhythm:RegularRate: Normal Anesthesia Plan ASA Status: 2 Plan discussed during pre-op evaluation: Epidural, General, CSE and SpinalAnesthesia plan discussed with: patient or representativePost-Operative Analgesia: routine analgesia & antiemeticsRecovery Plan: LDRAdditional comments: 72266-8Vkmjsnpccjmtqf Preoperative evaluation and management lmfmLE9821-99-86N02:47:03Anesthesio logy Preoperative evaluation and management noteTXT1.2.840.053379.1.13.104.2.7. 2.525892|[id number] for patient fkzm63153-5Daapfxde operation noteLN[id number] 2VRLIUMNXMIESPQAJEAVXSB9767-64-05D1 0:47:031.2.840.081486.1.72.3.15|1.2 .840.554733.1.13.104.2.7.2.727879_1 [id number] [facility] 2022-10-10 22:05:31 oTd4yJJHfvDpWAIqXRVOnZwb63hJvezZfP5 /E+urbQ+Vx8+6OgkfUj/cPGlCF80Z3716-5 10-10T22:05:31 Problem: Intrapartum process (including labor pain)Goal: Absence of or reduction of complications of laborOutcome: Progressing as expectedGoal: Able to cope with painOutcome: Progressing as expectedGoal: Adequate to move to next level of careOutcome: Progressing as expectedGoal: Reduction in pain sensationOutcome: Progressing as expected Problem: Falls, Risk ofGoal: Absence of fallsOutcome: Progressing as expected 07216-5Jcbv of care aldlKX8892-91-20B07:05:40Plan of care noteTXT1.2.840.654750.1.13.104.2.7. 2.880549|[id number] for patient bfte79714-7YjjiMH278410081Rbcij N Bass RNUTMB[id number] 0ECTJPVQYDKGOQNFUVLKSHN1101-74-48G6 2:05:401.2.840.044164.1.72.3.15|1.2 .840.722560.1.13.104.2.7.2.727879_1 [id number] Amy Brand RN [facility] 2022-10-10 15:17:19 jTCv/gUQJp6DeYxeqcxTyOBCuH9jIxd1hwv EEpH4bMRoOZUvEDGGEINZgGJ7SxX04678-1 5:17:19 Problem: Intrapartum process (including labor pain)Goal: Absence of or reduction of complications of laborOutcome: Progressing as expectedGoal: Able to cope with painOutcome: Progressing as expectedGoal: Adequate to move to next level of careOutcome: Progressing as expectedGoal: Reduction in pain sensationOutcome: Progressing as expected 89000-7Ejnh of care xtymVD5147-66-34D25:17:21Plan of care noteTXT1.2.840.213487.1.13.104.2.7. 2.299694|[id number] for patient kdmh15065-4YtgfKV183605558Wsimwfi R Squires RN[id number] 1BOTZVKJAUKKOZWUMVTZOPZ5347-50-66H3 5:17:211.2.840.407396.1.72.3.15|1.2 .840.457504.1.13.104.2.7.2.727879_1 [id number] Tiara Keane RN [facility]
[2023-07-20] MEDS ORDERED: IBUPROFEN 400 MG TAB ONE (14:29)
[2023-07-20] MEDS ORDERED: HYDROCODONE/APAP 7.5/325 MG TAB ONE (14:29)
--- NOTE | 2023-07-20 16:07 | EDPHYS ---
Physician Documentation [facility] Name: Radha Beckman Age: 33 yrs Sex: Female : 1990 Arrival Date: 07/20/2023 Time: 14:01 Bed 19 Private MD: ED Physician Ralph Sheldon HPI: 07/19 14:30 This 33 yrs old Female presents to ER via Wheelchair with complaints of Fall cp Injury, Knee Pain. 14:30 Details of fall: The patient fell from a height, multiple stairs. Onset: The cp symptoms/episode began/occurred yesterday. Associated injuries: The patient sustained right knee, painful injury, swelling. Historical: - Allergies: 14:18 NKA; mb9 - PMHx: 14:18 hyperemesis; mb9 - PSHx: 14:18 None; mb9 - Immunization history:: Adult Immunizations up to date. - Infectious Disease History:: Denies. - Social history:: Smoking status: Patient denies any tobacco usage or history of. ROS: 14:35 Constitutional: Negative for body aches, chills, fever, poor PO intake, cp 14:35 Eyes: Negative for injury, pain, redness, and discharge, cp 14:35 ENT: Negative for drainage from ear(s), ear pain, sore throat, difficulty swallowing, difficulty handling secretions, 14:35 Cardiovascular: Negative for chest pain, palpitations, 14:35 Respiratory: Negative for cough, shortness of breath, wheezing, 14:35 MS/extremity: Positive for decreased range of motion, pain, swelling, tenderness, of the right knee, Negative for deformity, paresthesias, 14:35 All other systems are negative, Exam: 14:45 Constitutional: The patient appears in no acute distress, alert, awake, non-toxic, well cp developed, well nourished, uncomfortable, 14:45 Head/Face: Normocephalic, atraumatic. cp 14:45 Neck: ROM/movement: is normal, is supple, without pain, no range of motions limitations, 14:45 Chest/axilla: Inspection: normal, 14:45 Cardiovascular: Rate: normal, 14:45 Respiratory: the patient does not display signs of respiratory distress, Respirations: normal, no use of accessory muscles, no retractions, labored breathing, is not present, Breath sounds: are clear throughout, no decreased breath sounds, no stridor, no wheezing, 14:45 Abdomen/GI: Inspection: abdomen appears normal, Palpation: abdomen is soft and non-tender, in all quadrants, 14:45 Back: pain, is absent, ROM is normal, 14:45 Musculoskeletal/extremity: Extremities: grossly normal except: noted in the right hip: tenderness, There is no evidence of decreased ROM, deformity, noted in the right knee: decreased ROM, swelling, tenderness, no evidence of deformity, ROM: limited passive range of motion due to pain, in the right knee, Perfusion: the extremity is normally perfused throughout, the right leg Sensation intact. Vital Signs: 14:17 BP 100 / 57; Pulse 78; Resp 18; Temp 98.1; Pulse Ox 100% ; Weight 65.77 kg; Height 5 mb9 ft. 5 in. ; Pain 10/10; 15:08 BP 109 / 74; Pulse 74; Resp 18; Pulse Ox 100% on R/A; mb9 16:35 BP 112 / 78; Pulse 78; Resp 18; Pulse Ox 100% ; mb9 14:17 Body Mass Index 24.13 (65.77 kg, 165.1 cm) mb9 14:17 Pain Scale: Adult mb9 Procedures: 16:10 Splinting: Splint applied to right knee using knee immobilizer, applied by nurse. cp Patient tolerated well. MDM: 14:12 Patient medically screened. 14:35 Differential diagnosis: fracture, sprain, strain, dislocation. 16:06 Data reviewed: vital signs, nurses notes, radiologic studies, plain films, and as a result, I will discharge patient. 16:06 I considered the following discharge prescriptions or medication management in the emergency department Medications were administered in the Emergency Department. See MAR. Counseling: I had a detailed discussion with the patient and/or guardian regarding the historical points, exam findings, and any diagnostic results supporting the discharge/admit diagnosis, radiology results, the need for outpatient follow up, a orthopedic surgeon, to return to the emergency department if symptoms worsen or persist or if there are any questions or concerns that arise at home. Response to treatment: the patient's symptoms have markedly improved after treatment, and as a result, I will discharge patient. 07/19 14:25 Order name: XRAY Pelvis cp 07/19 14:25 Order name: XRAY Femur RIGHT cp 07/19 16:03 Order name: Knee Immobilizer; Complete Time: 16:06 cp 07/19 16:03 Order name: Crutches; Complete Time: 16:06 cp Administered Medications: 14:31 Drug: Hydrocodone-Acetaminophen PO (7.5 mg-325 mg) 1 tabs PO once; RASS on ADMIN: mb9 Combtv4, Very Agttd3, Agttd2, Rstlss1, AlertClm0, Drwsy-1, Lt Sdtn-2, Mod Sdtn-3, Dp Sdtn-4, UnArsble-5 Route: PO; 16:05 Follow up: Response: No adverse reaction mb9 14:31 Drug: Ibuprofen PO 800 mg PO once Route: PO; mb9 16:05 Follow up: Response: No adverse reaction mb9 16:23 Drug: fentaNYL (PF) IM 25 mcg IM once Route: IM; Site: right deltoid; mb9 16:35 Follow up: Response: No adverse reaction mb9 16:23 Drug: Ketorolac IM 30 mg IM once Route: IM; Site: left deltoid; mb9 16:35 Follow up: Response: No adverse reaction mb9 Disposition Summary: 07/20/23 16:07 Discharge Ordered Notes: Location: Home cp Problem: new cp Symptoms: have improved cp Condition: Stable cp Diagnosis - Fall (on) (from) unspecified stairs and steps cp - Pain in right knee cp - Pain in right hip cp Followup: cp - With: Clyde Menard MD - When: 1 week - Reason: Recheck today's complaints Discharge Instructions: - Discharge Summary Sheet cp - How to Use a Knee Immobilizer cp - Acute Knee Pain, Adult cp - Hip Pain cp Forms: - Medication Reconciliation Form cp - Antibiotic Education cp - Prescription Opioid Use cp - Patient Portal Instructions cp - Leadership Thank You Letter cp Prescriptions: - Ibuprofen 800 mg Oral Tablet - take 1 tablet ORAL route every 8 hours As needed take with food; 30 tablet; cp Refills: 0, Product Selection Permitted Signatures: Dispatcher [employer] EDMS Frederick Aviles PA PA cp Apryl Hills RN RN mb9 Corrections: (The following items were deleted from the chart) 07/20 11:54 07/19 14:30 Onset: The symptoms/episode began/occurred today, cp cp 07/20 11:59 11:58 Splinting: Splint applied to right knee using knee immobilizer, applied by nurse. cp Patient tolerated well, cp
--- NOTE | 2023-07-20 16:07 | ER ---
Nurse's Notes [facility] Name: Radha Beckman Age: 33 yrs Sex: Female : 1990 Arrival Date: 07/20/2023 Time: 14:01 Bed 19 Private MD: Diagnosis: Fall (on) (from) unspecified stairs and steps;Pain in right knee;Pain in right hip Presentation: 07/19 14:17 Chief complaint: Patient states: "Yesterday, I fell down 2 steps and felt my right knee mb9 snap. It's swollen, painful, and can barley put weight on it.". Coronavirus screen: Vaccine status: Patient reports being unvaccinated. Ebola Screen: No symptoms or risks identified at this time. Initial Sepsis Screen: Does the patient meet any 2 criteria? No. Patient's initial sepsis screen is negative. Does the patient have a suspected source of infection? No. Patient's initial sepsis screen is negative. Risk Assessment: Do you want to hurt yourself or someone else? Patient reports no desire to harm self or others. Onset of symptoms was July 20, 2023. 14:17 Method Of Arrival: Wheelchair mb9 14:17 Acuity: SHARIF 4 mb9 Triage Assessment: 14:19 General: Appears in no apparent distress. Behavior is calm, cooperative. Pain: mb9 Complains of pain in right patella Pain currently is 10 out of 10 on a pain scale. Quality of pain is described as throbbing, Pain began suddenly, Is continuous. EENT: No signs and/or symptoms were reported regarding the EENT system. Neuro: Bermudez Agitation-Sedation Scale (RASS): 0 - Alert and Calm Level of Consciousness is awake, alert, obeys commands, Oriented to person, place, time, situation, Appropriate for age. Cardiovascular: Patient's skin is warm and dry. Respiratory: Airway is patent Respiratory effort is even, unlabored, Respiratory pattern is regular, symmetrical. GI: No signs and/or symptoms were reported involving the gastrointestinal system. : No signs and/or symptoms were reported regarding the genitourinary system. Derm: Skin is pink, warm \\T\\ dry. Musculoskeletal: Range of motion: limited in right knee Swelling present in right patella. Historical: - Allergies: 14:18 NKA; mb9 - PMHx: 14:18 hyperemesis; mb9 - PSHx: 14:18 None; mb9 - Immunization history:: Adult Immunizations up to date. - Infectious Disease History:: Denies. - Social history:: Smoking status: Patient denies any tobacco usage or history of. Screenin:20 [facility] ED Fall Risk Assessment (Adult) History of falling in the last 3 months, mb9 including since admission Yes- single mechanical fall (1 pt) Confusion or Disorientation No (0 pts) Intoxicated or Sedated No (0 pts) Impaired Gait Yes (1 pt) Mobility Assist Device Used Yes (1 pt) Altered Elimination No (0 pt) Score/Fall Risk Level 3 or more points = High Risk Oriented to surroundings, Maintained a safe environment, Educated pt \\T\\ family on fall prevention, incl call for assistance when getting out of bed, Assessed \\T\\ reinforced patient's understanding of fall precautions, Provided non-skid footwear. Abuse screen: Denies threats or abuse. Nutritional screening: No deficits noted. Tuberculosis screening: No symptoms or risk factors identified. Assessment: 14:51 Reassessment: see triage assessment. mb9 16:35 Reassessment: Patient appears in no apparent distress at this time. No changes from mb9 previously documented assessment. Patient and/or family updated on plan of care and expected duration. Pain level reassessed. Patient is alert, oriented x 3, equal unlabored respirations, skin warm/dry/pink. Vital Signs: 14:17 BP 100 / 57; Pulse 78; Resp 18; Temp 98.1; Pulse Ox 100% ; Weight 65.77 kg; Height 5 mb9 ft. 5 in. ; Pain 10/10; 15:08 BP 109 / 74; Pulse 74; Resp 18; Pulse Ox 100% on R/A; mb9 16:35 BP 112 / 78; Pulse 78; Resp 18; Pulse Ox 100% ; mb9 14:17 Body Mass Index 24.13 (65.77 kg, 165.1 cm) mb9 14:17 Pain Scale: Adult mb9 ED Course: 14:05 Patient arrived in ED. mg5 14:05 Frederick Aviles PA is PHCP. cp 14:06 Ralph Sheldon MD is Attending Physician. cp 14:11 Apryl Hills RN is Primary Nurse. mb9 14:17 Arm band placed on. mb9 14:18 Triage completed. mb9 14:20 Placed in gown. Bed in low position. Call light in reach. Side rails up X 1. Provided mb9 Education on: press call light if needing anything. Client placed on continuous cardiac and pulse oximetry monitoring. NIBP monitoring applied. Door closed. Noise minimized. Warm blanket given. Pillow given. 14:20 No provider procedures requiring assistance completed. mb9 15:25 XRAY Pelvis In Process Unspecified. EDMS 15:25 XRAY Femur RIGHT In Process Unspecified. EDMS 16:07 Clyde Menard MD is Referral Physician. cp 16:35 Patient did not have IV access during this emergency room visit. mb9 Administered Medications: 14:31 Drug: Hydrocodone-Acetaminophen PO (7.5 mg-325 mg) 1 tabs PO once; RASS on ADMIN: mb9 Combtv4, Very Agttd3, Agttd2, Rstlss1, AlertClm0, Drwsy-1, Lt Sdtn-2, Mod Sdtn-3, Dp Sdtn-4, UnArsble-5 Route: PO; 16:05 Follow up: Response: No adverse reaction mb9 14:31 Drug: Ibuprofen PO 800 mg PO once Route: PO; mb9 16:05 Follow up: Response: No adverse reaction mb9 16:23 Drug: fentaNYL (PF) IM 25 mcg IM once Route: IM; Site: right deltoid; mb9 16:35 Follow up: Response: No adverse reaction mb9 16:23 Drug: Ketorolac IM 30 mg IM once Route: IM; Site: left deltoid; mb9 16:35 Follow up: Response: No adverse reaction mb9 Medication: 14:20 VIS not applicable for this client. mb9 Outcome: 16:07 Discharge ordered by . cp 16:35 Discharged to home with crutches, with family, mb9 16:35 Condition: stable 16:35 Discharge instructions given to patient, Instructed on discharge instructions, follow up and referral plans. Demonstrated understanding of instructions, follow-up care, medications, Prescriptions given X 1, 16:35 Patient left the ED. mb9 Signatures: Dispatcher [employer] EDKS Frederick Aviles PA PA cp Breneman, Mary Beth, RN RN mb9 Elly Marte mg5
[2023-07-20] MEDS ORDERED: KETOROLAC 30 MG/ML INJ ONE (16:08)
[2023-07-20] MEDS ORDERED: FENTANYL CITR 100 MCG/2 ML ONE (16:09)
--- NOTE | 2023-07-20 16:19 | RAD REPORT ---
EXAM DESCRIPTION: RAD - Pelvis - 07/20/2023 3:23 pm CLINICAL HISTORY: fall COMPARISON: No comparisons TECHNIQUE: Single AP view of the pelvis. FINDINGS: The visualized pelvic ring is intact. No suspicious osseous lesions. No significant degene rative changes or erosions of the hip joints. Other pelvic joints are unremarkable. Visualized aspect s of the abdomen and soft tissues are unremarkable. IMPRESSION: No acute osseous abnormality of the bony pelvis.
--- NOTE | 2023-07-20 16:53 | RAD REPORT ---
EXAM DESCRIPTION: RAD - Femur Right - 07/20/2023 3:23 pm CLINICAL HISTORY: fall;Pain COMPARISON: No comparisons TECHNIQUE: Right femur, 2 views. FINDINGS: Osseous irregularity along the medial tibial plateau, may reflect a mildly displaced fract ure. There is no dislocation or periosteal reaction noted. Moderate knee joint effusion. No acute or suspicious bony finding. IMPRESSION: Osseous irregularity along the medial tibial plateau, may reflect a mildly displaced fra cture. Moderate knee joint effusion.
[2023-07-20 17:01] VITALS: BP 112/78; TEMP 98.1; O2SAT 100
== END 2023-07-20 16:35 | disposition home or self-care (01) ==
LOC: ER 14:01
DX: M25.561 Pain in right knee (principal); M25.551 Pain in right hip; W10.9XXA Fall (on) (from) unspecified stairs and steps, initial encounter
CPT/HCPCS: 72170; 73552; 96372; 99284; J3010